=== PATIENT | female | born 2000 | race Hispanic/Latino ===

== ENCOUNTER 2024-05-26 10:27 | Emergency (ER) | payer OTHER ==
[~2024-05-26] VITALS: Ht 167.6 cm; Wt 129.3 kg
[2024-05-26] MEDS: hydrALAZine 20MG/ML VIAL IV ONE (11:02)
[2024-05-26] MEDS: 0.9%NACL 1000ML 1,000 ML IV ONE (11:02)
[2024-05-26 11:18] LABS: BASOPHILS # (AUTO) 0.05 K/uL (0.00-0.20); BASOPHILS % (AUTO) 0.6 % (0.0-5.0); EOSINOPHILS # (AUTO) 0.06 K/uL (0.00-0.70); EOSINOPHILS % (AUTO) 0.7 % (0.0-8.0); HEMATOCRIT 41.5 % (36-48); IMMATURE GRANULOCYTE ABSOLUTE 0.02 K/uL (0-1); LYMPHOCYTES # (AUTO) 1.4 K/uL (1.0-4.8); LYMPHOCYTES % (AUTO) 15.1 % (21.0-51.0); MEAN CORPUSCULAR HEMOGLOBIN 26.8 pg (27.0-33.0); MEAN CORPUSCULAR HGB CONC 32.5 g/dL (32.0-36.0); MEAN CORPUSCULAR VOLUME 82.3 fL (79-99); MONOCYTES # (AUTO) 0.4 K/uL (0.1-1.0); MONOCYTES % (AUTO) 3.9 % (3.0-13.0); NEUTROPHILS # (AUTO) 7.1 K/uL (1.8-7.7); NEUTROPHILS % (AUTO) 79.5 % (40.0-77.0); PLATELET COUNT (AUTO) 310 K/uL (130-400); RED BLOOD CELL COUNT(AUTO) 5.04 MIL/uL (4.00-5.50); RED CELL DISTRIBUTION WIDTH 14.2 % (11.0-15.5)
[2024-05-26 11:24] LABS: CREATININE 0.7 mg/dL (0.5-1.0); POTASSIUM 3.7 mmol/L (3.5-5.1)
[2024-05-26 11:38] LABS: HCG,QUALITATIVE URINE NEGATIVE (NEGATIVE)
[2024-05-26 11:45] LABS: APPEARANCE,URINE TURBID (CLEAR); BILIRUBIN,URINE NEGATIVE (NEGATIVE); COLOR,URINE RED (YELLOW); GLUCOSE, URINE (UA) >=1000 mg/dL (NEGATIVE); KETONES,URINE 15 mg/dL (NEGATIVE); LEUKOCYTE ESTERASE ,URINE NEGATIVE Leu/uL (NEGATIVE); NITRATE,URINE NEGATIVE (NEGATIVE); OCCULT BLOOD,URINE LARGE (NEGATIVE); PH,URINE 5.5 (5.0-8.0); PROTEIN,URINE 100 mg/dL (NEGATIVE); UROBILINOGEN,URINE 0.2 mg/dL (0.2-1.0)
[2024-05-26 11:52] LABS: ADD UA MICROSCOPIC YES
[2024-05-26 12:02] LABS: RBC,URINE TNTC /HPF (0-1)
[2024-05-26 12:03] LABS: BACTERIA,URINE Few /HPF (None Seen); SQUAMOUS EPITHELIAL CELL,UR Rare /HPF (0-2)
[2024-05-26] MEDS: metoPROLOL tartRATE 1 MG/ML 5ML VIAL IV ONE (12:09)
[2024-05-26 12:20] VITALS: BP 155/84; PULSE 91; RESP 18; TEMP 98.2; O2SAT 100
[2024-05-26] MEDS ORDERED: METO100T14 PO (12:24)
== END 2024-05-26 12:29 | disposition home or self-care (01) ==
LOC: EDH 10:27
DX: N93.8 Other specified abnormal uterine and vaginal bleeding (principal); E11.65 Type 2 diabetes mellitus with hyperglycemia; E66.9 Obesity, unspecified; I16.0 Hypertensive urgency; Z90.89 Acquired absence of other organs; Z88.8 Allergy status to other drugs, medicaments and biological substances; Z79.899 Other long term (current) drug therapy
CPT/HCPCS: 99284; 96374; 96375; 84484; 80048; 85025; 86850; 86900; 86901; 87086; 82948; 82010; 81001; 81025; 36415; 93005; J3490; J7030; J0360

== ENCOUNTER 2025-08-05 04:51 | Inpatient (IN) | payer OTHER ==
[~2025-08-05] VITALS: Ht 167.6 cm; Wt 116.1 kg
[2025-08-05] VITALS (8 sets, daily range): BP systolic 127–144; BP diastolic 62–89; PULSE 81–128; RESP 20–55; TEMP 98.4–98.7; O2SAT 97–100
[~2025-08-05 04:51] MED LIST: METO100T14 PO
[2025-08-05] MEDS: 0.9%NACL 1000ML 1,000 ML IV SCH ×2 (05:11→09:23)
[2025-08-05 05:17] LABS: IMMATURE GRANULOCYTE ABSOLUTE 0.05 K/uL (0-1); NUCLEATED RED BLOOD CELLS 0.0 % (0.0-0.19); PLATELET COUNT (AUTO) 216 K/uL (130-400); RED BLOOD CELL COUNT(AUTO) 5.31 MIL/uL (4.00-5.50); RED CELL DISTRIBUTION WIDTH 13.2 % (11.0-15.5); WHITE BLOOD COUNT (AUTO) 13.0 K/uL (4.8-10.8)
--- NOTE | 2025-08-05 05:18 | ERN ---
General Chief Complaint: Abdominal Pain Stated Complaint: C/O ABD PAIN WITH N X V X DIARRHEA Time Seen by MD: 04:59 History of Present Illness Initial Comments 25-year-old female history of hypertension here for evaluation of nausea vomiting and diarrhea. Patient states she woke up this morning and had four episodes of vomiting and two episodes of diarrhea. She was concerned and thus decided to come to the emergency room for evaluation. She also states that she has a history of anxiety and does not like coming to hospital. Allergies: Coded Allergies: cetirizine (Unverified Allergy, Unknown, 05/26/24) Home Meds Active Scripts Metoprolol Tartrate (Metoprolol Tartrate) 100 Mg Tablet, 100 MG PO BID, #60 TAB Prov:[employer]RATOR 05/26/24 Past Medical History Past Medical History: Anxiety, Diabetes-Type II, High Cholesterol, Hypertension Past Surgical History: Tonsillectomy Female( History) LMP: Aug 05, 2025 Gastrointestinal/Abdominal: (+) nausea, (+) vomiting, (+) diarrhea (Autism aefedgd7 membranes day the aefedgd7 cm,) Review of Systems: was completed, & the rest were negative. Physical Exam General Appearance: (+) no apparent distress Orientation: (+) alert, (+) oriented x 3 Head/Face Trauma: No Eye: bilateral eye normal inspection, bilateral eye PERRL, bilateral eye EOMI Ear, Nose, Throat: (+) hearing grossly normal, (+) moist mucous membraine, (+) normal pharynx Neck: (+) normal inspection, (+) supple, (+) full range of motion Respiratory: (+) chest non-tender, (+) well ventilated; (-) decreased breath sounds Heart: (+) tachycardia; (-) murmur Gastrointestinal: (+) soft Gastrointestinal Comment Mild Epigastric tenderness Results Laboratory and Microbiology Lab and Micro Result Laboratory Tests Test 08/05/25 05:11 08/05/25 06:50 08/05/25 07:47 08/05/25 08:02 White Blood Count 13.0 K/uL (4.8-10.8) H Red Blood Count 5.31 MIL/uL (4.00-5.50) Hemoglobin 15.1 g/dL (12.0-16.0) Hematocrit 45.4 % (36-48) Mean Corpuscular Volume 85.5 fL (79-99) Mean Corpuscular Hemoglobin 28.4 pg (27.0-33.0) Mean Corpuscular Hemoglobin Concent 33.3 g/dL (32.0-36.0) Red Cell Distribution Width 13.2 % (11.0-15.5) Platelet Count 216 K/uL (130-400) Mean Platelet Volume 11.6 fL (7.5-10.5) H Immature Granulocyte % (Auto) 0.4 % (0-1) Neutrophils (%) (Auto) 85.2 % (40.0-77.0) H Lymphocytes (%) (Auto) 8.9 % (21.0-51.0) L Monocytes (%) (Auto) 4.6 % (3.0-13.0) Eosinophils (%) (Auto) 0.5 % (0.0-8.0) Basophils (%) (Auto) 0.4 % (0.0-5.0) Neutrophils # (Auto) 11.1 K/uL (1.8-7.7) H Lymphocytes # (Auto) 1.2 K/uL (1.0-4.8) Monocytes # (Auto) 0.6 K/uL (0.1-1.0) Eosinophils # (Auto) 0.07 K/uL (0.00-0.70) Basophils # (Auto) 0.05 K/uL (0.00-0.20) Absolute Immature Granulocyte (auto 0.05 K/uL (0-1) Nucleated Red Blood Cells 0.0 % (0.0-0.19) White Cell Morphology Comment CONSISTENT W/DIFF Sodium Level 132 mmol/L (136-145) L Potassium Level 4.5 mmol/L (3.5-5.1) Chloride Level 96 mmol/L (101-111) L Carbon Dioxide Level 22 mmol/L (21-32) Blood Urea Nitrogen 13 mg/dL (7-18) Creatinine 0.6 mg/dL (0.5-1.0) Glomerular Filtration Rate Calc 127 mL/min (>90) Random Glucose 338 mg/dL (70-105) H Total Calcium 8.9 mg/dL (8.5-10.1) Total Bilirubin 0.5 mg/dL (0.2-1.0) Direct Bilirubin < 0.1 mg/dL (0.0-0.3) Aspartate Amino Transf (AST/SGOT) 54 U/L (10-37) H Alanine Aminotransferase (ALT/SGPT) 32 U/L (12-78) Alkaline Phosphatase 93 U/L (50-136) Total Protein 8.4 g/dL (6.0-8.3) H Albumin 3.7 g/dL (3.5-5.0) Lipase 38 U/L (16-77) Serum Test, Qualitative NEGATIVE (NEGATIVE) Urine Color COLORLESS (YELLOW) Urine Appearance CLEAR (CLEAR) Urine pH 5.5 (5.0-8.0) Urine Specific [place] 1.032 (1.001-1.031) Urine Protein NEGATIVE mg/dL (NEGATIVE) Urine Glucose (UA) >=1000 mg/dL (NEGATIVE) H Urine Ketones 20 mg/dL (NEGATIVE) H Urine Occult Blood +- (TRACE) (NEGATIVE) H Urine Nitrate NEGATIVE (NEGATIVE) Urine Bilirubin NEGATIVE mg/dL (NEGATIVE) Urine Urobilinogen 0.2 mg/dL (0.2-1.0) Urine Leukocyte Esterase NEGATIVE Mc/uL Urine RBC 2-5 /HPF (0-1) H Urine WBC 0-1 /HPF (0-1) Urine Squamous Epithelial Cells RARE /HPF (0-2) Urine Bacteria None /HPF (None Seen) Urine Opiates Screen NEGATIVE (NEGATIVE) Urine Barbiturates Screen NEGATIVE (NEGATIVE) Urine Phencyclidine Screen NEGATIVE (NEGATIVE) Urine Amphetamines Screen NEGATIVE (NEGATIVE) Urine Benzodiazepines Screen NEGATIVE (NEGATIVE) Urine Cocaine Screen NEGATIVE (NEGATIVE) Urine Marijuana (THC) Screen NEGATIVE (NEGATIVE) Whole Blood Ketones Quantitative 1.4 mmol/L (0.0-0.6) H Blood Gas Specimen Type Arterial Arterial Blood pH 7.493 (7.350-7.450) Arterial Blood Partial Pressure CO2 25 mmHg (32-45) L Arterial Blood Partial Pressure O2 94.4 mmHg (83.0-108.0) Arterial Blood HCO3 18.9 mmol/L (21.0-28.0) L Arterial Blood Oxygen Saturation 97.6 % (94.0-98.0) Arterial Blood Base Excess -2.5 mmol/L (-2.0-3.0) L Hemoglobin (Blood Gas) 15.1 g/dL (12.0-16.0) Sodium (Blood Gas) 137 MMOL/L (136-145) Bedside Potassium (Blood Gas) 4.0 MMOL/L (3.4-4.5) Bedside Chloride (Blood Gas) 102 MMOL/L (98-107) Bedside Glucose (Blood Gas) 331 MG/DL (65-95) H Bedside Ionized Calcium (Blood Gas) 1.10 MMOL/L (1.15-1.33) L Bedside Lactic Acid (Blood Gas) 2.12 MMOL/L (0.36-0.75) H Blood Gas Temperature 37.0 CELSIUS (35.5-37.0) Blood Gas Vent Mode RA (ROOM AIR) FiO2 21.0 % Blood Gas Specimen Comment LR, EKG/XRAY/US/CT/MRI EKG Comment EKG read by me with a rate of 125, NV 127, QRS 107, QT 331, sinus tachycardia with a left ventricular hypertrophy no STEMI MDM 25-year-old female history of hypertension likely gastroenteritis. We will get labs, give fluids, had reassess. Patient's blood pressure elevated here likely secondary to white coat hypertension. We will give dose of labetalol here as she is on metoprolol. She did not take her medications today MDM: DIFFERENTIAL DIAGNOSIS: Gastroenteritis, food poisoning, anxiety, dka RATIONALE: TESTS CONSIDERED AND ORDERED SECONDARY TO SHARED DECISION MAKING INCLUDE: PREVIOUS OUTSIDE RECORDS REVIEWED: OLD ER VISITS. RISK OF COMPLICATION AND/OR MORBIDITY OR MORTALITY OF PATIENT MANAGEMENT: NONE MEDICATIONS-PER MEDICATION RECONCILIATION NEED FOR HOSPITALIZATION: PATIENT DOES NOT MEET CRITERIA FOR HOSPITALIZATION. NEED FOR EMERGENCY MAJOR/MINOR SURGERY: NO THERE ARE NO SOCIAL CONCERNS WITH THIS PATIENT. PRESCRIPTION DRUG MANAGEMENT PRESCRIPTIONS WILL INCLUDE SYMPTOMATIC CARE PATIENT'S PRIOR EXTERNAL MEDICAL RECORDS FROM OTHER ER VISITS WERE REVIEWED BY ME INDICATED. PRIOR TESTING AND RESULTS FROM PREVIOUS VISITS WERE REVIEWED. PRIOR TESTS WERE TAKEN INTO ACCOUNT WITH MEDICAL DECISION MAKING AND RESOURCE UTILIZATION, INDEPENDENT HISTORIAN/HISTORIANS WERE USED TO OBTAIN COMPLETE MEDICAL HISTORY. I INDEPENDENTLY INTERPRETED THE TEST THAT WERE PERFORMED, RESULTS WERE REVIEWED BY ME AND CONSIDERED FINDINGS ON RADIOLOGY IF ORDERED. MEDICAL MANAGEMENT AND EXAMINATION INTERPRETATION DISCUSSIONS WERE HAD BY ME WITH OTHER QUALIFIED HEALTHCARE PROFESSIONALS INDICATED FOR THE PATIENT'S CARE. Patient transitioned to Dr. Mayo at the end of my shift. Pending urinalysis, patient is a 25-year-old female coming in complaining of abdominal discomfort nauseousness and vomiting. Laboratory workup did show an elevated anion gap of 16 with a an elevated blood glucose. Patient will be admitted under the care of hospitalist group for ongoing management of DKA. ED Course Orders Procedure Category Date Status Time 0.9%Nacl 1000ml (Ns PHA 08/05/25 In Process 1000ml) 05:00 Ondansetron 4mg Inj PHA 08/05/25 Complete (Zofran 4mg Inj) 05:00 Cbc With Differential LAB 08/05/25 Complete 04:59 Basic Metabolic Panel LAB 08/05/25 Complete 04:59 Hepatic Function Panel LAB 08/05/25 Complete 04:59 Urinalysis Profile LAB 08/05/25 Complete 04:59 Testing, LAB 08/05/25 Complete Serum Hcg 04:59 Lipase LAB 08/05/25 Complete 04:59 12 Lead Ekg Tracing- EKG 08/05/25 Logged Technical 05:15 Labetalol 20mg Syg PHA 08/05/25 Complete (Trandate 20mg Syg) 05:30 Labetalol 20mg Syg PHA 08/05/25 Complete (Trandate 20mg Syg) 05:24 Hydralazine 20mg Inj PHA 08/05/25 Complete (Apresoline 20mg In 06:30 Ondansetron 4mg Inj PHA 08/05/25 Complete (Zofran 4mg Inj) 07:00 Drug Screen Urine LAB 08/05/25 Complete 07:12 Arterial Blood Gas + RT 08/05/25 Transmitted 07:38 Ketone Blood LAB 08/05/25 Complete Quantitative 07:38 Arterial Blood Gas LAB 08/05/25 Complete Arterial + 08:02 Dka Protocol: Bmp Q4h CPOE 08/05/25 Transmitted Until 08:17 Dka Protocol: Bs CPOE 08/05/25 Transmitted Monitoring 08:17 Insulin Regular, PHA 08/05/25 In Process Human 3ml (Humulin R 08:30 Current Medications Medications (Trade) Dose Ordered Sig/[place]arrison Route PRN Reason Start Time Stop Time Status Last Admin Dose Admin Hydralazine HCl (APRESOLine 20MG INJ) 20 mg ONCE ONCE IV 08/05/25 06:30 08/05/25 06:31 DC 08/05/25 06:29 Insulin Human Regular 100 unit/ Sodium Chloride 100 ml @ 0 mls/hr PROTOCOL IV 08/05/25 08:30 09/04/25 08:29 Labetalol HCl (TRANdate 20MG SYG) 10 mg ONCE ONCE IV 08/05/25 05:30 08/05/25 05:31 DC 08/05/25 05:46 Labetalol HCl (TRANdate 20MG SYG) 20 mg STK-MED ONCE IV 08/05/25 05:24 08/05/25 05:24 DC Ondansetron HCl (zoFRAN 4MG INJ) 4 mg ONCE ONCE IVP 08/05/25 05:00 08/05/25 05:09 DC 08/05/25 05:11 Ondansetron HCl (zoFRAN 4MG INJ) 4 mg ONCE ONCE IVP 08/05/25 07:00 08/05/25 07:01 DC 08/05/25 06:36 Sodium Chloride 1,000 ml @ 0 mls/hr Q0M IV 08/05/25 05:00 09/04/25 04:59 08/05/25 05:11 Vital Signs Date Time Temp Pulse Resp B/P (MAP) Pulse Ox O2 Delivery O2 Flow Rate FiO2 08/05/25 07:37 98.8 127 18 147/90 100 Room Air* 0 08/05/25 06:30 98.8 125 18 157/107 100 Room Air* 0 08/05/25 05:48 98.8 101 18 166/116 100 Room Air* 0 08/05/25 05:06 98.8 131 18 190/119 99 Room Air* 0 08/05/25 04:52 97.3 136 24 191/130 100 Room Air DX & DISP Disposition: Inpatient Decision to Admit Time: 08:33 Departure Impression: Primary Impression: Diabetes mellitus with hyperglycemia Additional Impression: DKA (diabetic ketoacidosis) Condition: Stable Referrals: LULY OZUNA MD (PCP) SEJAL NICOLE MD Aug 05, 2025 05:18 YANELI MAYO MD Aug 05, 2025 08:33
[2025-08-05 05:37] LABS: ASPARTATE AMINOTRANSFERASE 54 U/L (10-37); CREATININE 0.6 mg/dL (0.5-1.0); GLOMERULAR FILTR. RATE CALC 127 mL/min (>90); GLUCOSE,RANDOM 338 mg/dL (70-105); TOTAL PROTEIN, SERUM 8.4 g/dL (6.0-8.3); UREA NITROGEN, BLOOD 13 mg/dL (7-18)
[2025-08-05 05:52] LABS: SODIUM SERUM 132 mmol/L (136-145)
[2025-08-05 05:55] LABS: WBC MORPHOLOGY CONSISTENT W/DIFF
[2025-08-05 07:13] LABS: APPEARANCE,URINE CLEAR (CLEAR); GLUCOSE, URINE (UA) >=1000 mg/dL (NEGATIVE); LEUKOCYTE ESTERASE ,URINE NEGATIVE Leu/uL (NEGATIVE); NITRATE,URINE NEGATIVE (NEGATIVE); OCCULT BLOOD,URINE +- (TRACE) (NEGATIVE)
[2025-08-05 07:20] LABS: ADD UA MICROSCOPIC YES
[2025-08-05 07:21] LABS: SQUAMOUS EPITHELIAL CELL,UR RARE /HPF (0-2)
[2025-08-05 07:47] LABS: AMPHET/METH SCREEN,URINE NEGATIVE (NEGATIVE); BARBITURATE SCREEN, URINE NEGATIVE (NEGATIVE); CANNABINOID SCREEN,URINE NEGATIVE (NEGATIVE); COCAINE SCREEN,URINE NEGATIVE (NEGATIVE)
[2025-08-05 08:05] LABS: ABG BASE EXCESS -2.5 mmol/L (-2.0-3.0); ABG HCO3 18.9 mmol/L (21.0-28.0); ABG OXYGEN SATURATION 97.6 % (94.0-98.0); ABG PCO2 25 mmHg (32-45); ABG PH 7.493 (7.350-7.450); CARBON MONOXIDE 0.8 % (0.5-1.5); PO2, ARTERIAL BG 94.4 mmHg (83.0-108.0); TEMPERATURE, CELSIUS BG 37.0 CELSIUS (35.5-37.0); VENT MODE, BG RA (ROOM AIR)
[2025-08-05] MEDS ORDERED: INSULIN REGULAR, HUMAN 3ML 100 UNIT in 0.9%NACL 100ML 99 ML IV SCH (08:30)
[2025-08-05] MEDS ORDERED: DEXTROSE 5 %-0.45 % NACL 1,000 ML IV SCH (09:00)
[2025-08-05 09:27] LABS: LACTATE DEHYDROGENASE 266.0 U/L (81-234)
--- NOTE | 2025-08-05 09:27 | HP ---
[facility] HISTORY AND PHYSICAL Date of Service: Aug 05, 2025 Time of Service: 09:19 HISTORY OF PRESENT ILLNESS: Date of service: 08/05/2025 patient was seen in ER room 12 This is a 25 year old female with underlying history of severe obesity, hypertension, type 2 diabetes mellitus, hyperlipidemia who presented to the ER for further evaluation of multiple episodes of nausea and vomiting patient states that she had some tacos last night and since then she has been having multiple nonbloody episode of diarrhea, multiple episodes of vomiting as well. Patient denies any fevers or chills. She has been having moderate intensity epigastric discomfort that is intermittent. Patient does report having history of hypertension that has been diagnosed for about one year, she also reports having issues with diabetes and she is currently maintained on metformin over the last one year. She reports having premature history of coronary artery disease in her father who had coronary artery bypass grafting in his 50s. Mother reports that patient also has symptoms of sleep apnea. Patient reports having lost some weight but unable to quantify. She denies any active smoking or alcohol consumption. Denies any illicit drug use. On presentation to the hospital, patient was noted to be afebrile with T-max of 97.3 F, heart rate of 136, blood pressure of 191/130. Labs [place] [address], hemoglobin of 15.1, platelet count of [id number]. BMP remarkable for sodium of 132, chloride of 96, creatinine of 0.6, blood glucose of 338, blood ketone of 1.4, AST of 54, ALT of 32, alkaline phosphatase 93, serum test was noted to be negative, lipase was normal at 38. Patient has been started on Insulin gtt already in the ER due to concerns for DKA. Patient will be admitted to ICU due to concerns for early DKA, patient will be started on IV hydration, IV antibiotic therapy, we will obtain a CT abdomen pelvis without contrast for further evaluation of diarrhea with concerns for infectious gastroenteritis. Request consultation with ICU service and endocrinology this admission. REVIEW OF SYSTEMS CONSTITUTIONAL: Denies fevers, chills, or night sweats. No unintentional weight loss reported. NEUROLOGICAL: Denies headache, amaurosis fugax, motor weakness, sensory deficit, vertigo/spinning sensation, gait abnormalities, or tremors. ENT: No hearing loss, otalgia, otorrhea, rhinitis, rhinorrhea, hoarseness, or sore throat. CARDIOVASCULAR: Denies any exertional angina, dyspnea on exertion, orthopnea, paroxysmal nocturnal dyspnea, palpitations, life-threatening arrhythmias, claudication. PULMONARY: Denies any shortness of breath, cough, phlegm/sputum, hemoptysis, pleuritic chest pain. SLEEP: Denies morning headaches, daytime somnolence or napping. Denies difficulty falling asleep, staying asleep, waking from sleep. Denies knowledge of snoring. GASTROINTESTINAL: Multiple episodes of nausea, vomiting and abdominal pain GENITOURINARY: Denies frequency, urgency, nocturia, hematuria or incontinence (Storage/Irritative symptoms.) Low urinary stream, straining to void, urinary intermittency or hesitancy, splitting of the voiding stream, terminal dribbling. ENDOCRINOLOGIC: Denies polyuria, polydipsia, polyphagia or heat/cold intolerances. HEMATOLOGIC: Denies thrombophilia/previous clots, or coagulopathy/bleeding disorders. ONCOLOGIC: Denies personal history of malignancy. DERMATOLOGIC: Denies rashes or pruritus. PSYCHIATRIC: Denies any suicidal or homicidal ideation. Denies hallucinations. PAST MEDICAL HISTORY: Hypertension for about a year, diagnosed with type 2 diabetes mellitus for about a year, morbid obesity, hyperlipidemia PAST SURGICAL HISTORY: Previous history of tonsillectomy PAST SOCIAL HISTORY: Resides with mother at home, denies active drug use denies any smoking or alcohol consumption FAMILY HISTORY: Family history of heart disease with father having coronary artery bypass grafting in his 50s Allergies: Cetirizine Medications: Losartan 25 mg daily, metoprolol tartrate 100 mg b.i.d., metformin 500 mg b.i.d., atorvastatin daily Coded Allergies: cetirizine (Unverified Allergy, Unknown, 05/26/24) PHYSICAL EXAM GENERAL APPEARANCE: The patient is awake, alert, patient is obese, resting in bed, appears anxious NEUROLOGICAL: Cranial nerves II-XII grossly intact. Motor is 5/5 in bilateral upper and lower extremities proximal to distal. No sensory deficits. HEENT: Face is symmetric. Pupils are equal and reactive. Extraocular movements are intact. NECK: Supple. No JVD. No thyromegaly. No submental, submandibular, pre- /postauricular, occipital or supraclavicular lymphadenopathy. CHEST: Normal chest expansion. No Telemetry. LUNGS: Absence of any rales, rhonchi or any wheezing. CARDIOVASCULAR: Regular. S1 and S2 normal. No appreciable rubs, murmurs or gallops. ABDOMEN: Soft, nontender, and nondistended. There is no rebound, voluntary guarding, or rigidity. : Deferred. No Donato. EXTREMITIES: Non-edematous and not cyanotic. No clubbing. Good capillary refill. SKIN: No skin breakdown. Vital Sign (Last 24 Hours) 08/05/25 07:37 Temp 98.8 Pulse 127 Resp 18 B/P (MAP) 147/90 Pulse Ox 100 O2 Delivery Room Air* O2 Flow Rate 0 FiO2 21 LABS: Laboratory: Test 08/05/25 08:02 08/05/25 07:47 08/05/25 07:17 08/05/25 06:50 Range/Units Blood Gas Specimen Type Arterial Arterial Blood pH 7.493 H 7.350-7.450 Arterial Blood Partial Pressure CO2 25 L 32-45 mmHg Arterial Blood Partial Pressure O2 94.4 83.0-108.0 mmHg Arterial Blood HCO3 18.9 L 21.0-28.0 mmol/L Arterial Blood Oxygen Saturation 97.6 94.0-98.0 % Arterial Blood Base Excess -2.5 L -2.0-3.0 mmol/L Hemoglobin (Blood Gas) 15.1 12.0-16.0 g/dL Sodium (Blood Gas) 137 136-145 MMOL/L Bedside Potassium (Blood Gas) 4.0 3.4-4.5 MMOL/L Bedside Chloride (Blood Gas) 102 98-107 MMOL/L Bedside Glucose (Blood Gas) 331 H 65-95 MG/DL Bedside Ionized Calcium (Blood Gas) 1.10 L 1.15-1.33 MMOL/L Bedside Lactic Acid (Blood Gas) 2.12 H 0.36-0.75 MMOL/L Blood Gas Temperature 37.0 35.5-37.0 CELSIUS Blood Gas Vent Mode RA ROOM AIR FiO2 21.0 % Blood Gas Specimen Comment DR.REYNA MARLON Whole Blood Ketones Quantitative 1.4 H 0.0-0.6 mmol/L Hemoglobin A1c 11.6 H 4.0-6.0 % Estimated Average Glucose (eAG) 286 H 70-126 mg/dL Urine Color COLORLESS YELLOW Urine Appearance CLEAR CLEAR Urine pH 5.5 5.0-8.0 Urine Specific [place] 1.032 H 1.001-1.031 Urine Protein NEGATIVE NEGATIVE mg/dL Urine Glucose (UA) >=1000 H NEGATIVE mg/dL Urine Ketones 20 H NEGATIVE mg/dL Urine Occult Blood +- (TRACE) H NEGATIVE Urine Nitrate NEGATIVE NEGATIVE Urine Bilirubin NEGATIVE NEGATIVE mg/dL Urine Urobilinogen 0.2 0.2-1.0 mg/dL Urine Leukocyte Esterase NEGATIVE NEGATIVE Mc/uL Urine RBC 2-5 H 0-1 /HPF Urine WBC 0-1 0-1 /HPF Urine Squamous Epithelial Cells RARE 0-2 /HPF Urine Bacteria None None Seen /HPF Urine Opiates Screen NEGATIVE NEGATIVE Urine Barbiturates Screen NEGATIVE NEGATIVE Urine Phencyclidine Screen NEGATIVE NEGATIVE Urine Amphetamines Screen NEGATIVE NEGATIVE Urine Benzodiazepines Screen NEGATIVE NEGATIVE Urine Cocaine Screen NEGATIVE NEGATIVE Urine Marijuana (THC) Screen NEGATIVE NEGATIVE Test 08/05/25 05:11 Range/Units White Blood Count 13.0 H 4.8-10.8 K/uL Red Blood Count 5.31 4.00-5.50 MIL/uL Hemoglobin 15.1 12.0-16.0 g/dL Hematocrit 45.4 36-48 % Mean Corpuscular Volume 85.5 79-99 fL Mean Corpuscular Hemoglobin 28.4 27.0-33.0 pg Mean Corpuscular Hemoglobin Concent 33.3 32.0-36.0 g/dL Red Cell Distribution Width 13.2 11.0-15.5 % Platelet Count 216 130-400 K/uL Mean Platelet Volume 11.6 H 7.5-10.5 fL Immature Granulocyte % (Auto) 0.4 0-1 % Neutrophils (%) (Auto) 85.2 H 40.0-77.0 % Lymphocytes (%) (Auto) 8.9 L 21.0-51.0 % Monocytes (%) (Auto) 4.6 3.0-13.0 % Eosinophils (%) (Auto) 0.5 0.0-8.0 % Basophils (%) (Auto) 0.4 0.0-5.0 % Neutrophils # (Auto) 11.1 H 1.8-7.7 K/uL Lymphocytes # (Auto) 1.2 1.0-4.8 K/uL Monocytes # (Auto) 0.6 0.1-1.0 K/uL Eosinophils # (Auto) 0.07 0.00-0.70 K/uL Basophils # (Auto) 0.05 0.00-0.20 K/uL Absolute Immature Granulocyte (auto 0.05 0-1 K/uL Nucleated Red Blood Cells 0.0 0.0-0.19 % White Cell Morphology Comment CONSISTENT W/DIFF Sodium Level 132 L 136-145 mmol/L Potassium Level 4.5 3.5-5.1 mmol/L Chloride Level 96 L 101-111 mmol/L Carbon Dioxide Level 22 21-32 mmol/L Blood Urea Nitrogen 13 7-18 mg/dL Creatinine 0.6 0.5-1.0 mg/dL Glomerular Filtration Rate Calc 127 >90 mL/min Random Glucose 338 H 70-105 mg/dL Total Calcium 8.9 8.5-10.1 mg/dL Total Bilirubin 0.5 0.2-1.0 mg/dL Direct Bilirubin < 0.1 0.0-0.3 mg/dL Aspartate Amino Transf (AST/SGOT) 54 H 10-37 U/L Alanine Aminotransferase (ALT/SGPT) 32 12-78 U/L Alkaline Phosphatase 93 50-136 U/L Total Protein 8.4 H 6.0-8.3 g/dL Albumin 3.7 3.5-5.0 g/dL Lipase 38 16-77 U/L Serum Test, Qualitative NEGATIVE NEGATIVE Current Medications Medications (Trade) Dose Ordered Sig/Garrison Route PRN Reason Start Time Stop Time Status Last Admin Dose Admin Acetaminophen (TYLenol 325MG TAB) 650 mg Q6H PRN PO MILD PAIN (1-3) 08/05/25 09:00 09/04/25 08:59 Ceftriaxone Sodium (ROCEphine 1G INJ) 1 gm Q24H IVPB 08/05/25 09:00 08/15/25 08:59 08/05/25 09:07 1 GM Dextrose/Sodium Chloride 1,000 ml @ 0 mls/hr AD IV 08/05/25 09:00 09/04/25 08:59 Enoxaparin Sodium (Lovenox) 40 mg DAILY SQ 08/06/25 09:00 09/05/25 08:59 Famotidine (Pepcid 20mg Vial) 20 mg BID IV 08/05/25 21:00 09/04/25 20:59 Hydralazine HCl (APRESOLine 20MG INJ) 10 mg Q6H PRN IV ADMINISTER FOR SBP > 170 08/05/25 09:30 09/04/25 09:29 UNV Insulin Human Regular 100 unit/ Sodium Chloride 100 ml @ 0 mls/hr PROTOCOL IV 08/05/25 08:30 08/05/25 09:02 DC Insulin Human Regular 100 unit/ Sodium Chloride 101 ml @ 0 mls/hr PROTOCOL IV 08/05/25 09:00 09/04/25 08:59 Ipratropium [place] (AtrovENT UD) 0.5 mg Q6H PRN IH SHORTNESS OF BREATH 08/05/25 09:00 09/04/25 08:59 Losartan Potassium (CozAAR 25MG TAB) 25 mg Q24H PO 08/05/25 09:00 09/04/25 08:59 Magnesium Sulfate 50 ml @ 0 mls/hr PROTOCOL IV 08/05/25 09:00 09/04/25 08:59 Metoprolol Tartrate (loprESSOR) 100 mg Q12H PO 08/05/25 09:00 09/04/25 08:59 Ondansetron HCl (zoFRAN 4MG INJ) 4 mg Q6H PRN IVP NAUSEA/VOMITING 08/05/25 09:00 09/04/25 08:59 Potassium Chloride 20 meq/ Sodium Chloride 1,010 ml @ 0 mls/hr PROTOCOL IV 08/05/25 09:00 09/04/25 08:59 Potassium Chloride/Dextrose/ Sod Cl 1,000 ml @ 0 mls/hr AD IV 08/05/25 09:00 09/04/25 08:59 Potassium Chloride 100 ml @ 0 mls/hr PROTOCOL PRN IV DKA POTASSIUM REPLACEMENT 08/05/25 09:00 09/04/25 08:59 Sodium Chloride 1,000 ml @ 0 mls/hr Q0M IV 08/05/25 05:00 08/05/25 08:59 DC 08/05/25 05:11 999 MLS/HR Sodium Chloride 1,000 ml @ 200 mls/hr PROTOCOL IV 08/05/25 09:00 09/04/25 08:59 DIAGNOSTICS / RADIOLOGY: Chest x-ray and CT abdomen pelvis without contrast is pending ASSESSMENT: Early diabetic ketoacidosis, POA Infectious gastroenteritis, POA Lactic acidosis, POA Dehydration, POA Hypertensive urgency, POA History of uncontrolled hypertension, POA History of poorly controlled type 2 diabetes mellitus, POA Severe Obesity, POA History of premature coronary artery disease, POA Metabolic syndrome, POA Leukocytosis, POA Rule out obstructive sleep apnea, POA PLAN: Patient will be admitted to ICU Patient is presenting with anion gap acidosis with a ketoacidosis in the setting of poorly controlled type 2 diabetes mellitus with A1c close to 11 and acute onset of nausea and vomiting with diarrhea concerning for infectious gastroenteritis We will check lactic acid, which will be trended closely Patient will be started on insulin drip per DKA protocol Patient will receive IV fluid hydration per DKA protocol, electrolytes will be aggressively repleted Patient has history of uncontrolled hypertension at a young age, we will continue with patient's home dose of metoprolol tartrate 100 mg b.i.d. and continue with Losartan 50 mg bid, patient has findings of sinus tachycardia and LVH in the EKG, we will also obtain further workup of hypertension including a renal ultrasound to rule out renal artery stenosis, we will check serum metaneph rines, we will obtain serum renin/aldosterone ratio We will obtain a 2D echocardiogram as well Consultation with endocrinology will be requested Consultation with ICU service will be requested Follow up results of chest x-ray and a CT abdomen pelvis without contrast We will keep patient on p.r.n. IV hydralazine 10 mg q.6 hours for SBP greater than 170 We will start patient on IV antibiotics with Rocephin/Flagyl, we will obtain GI PCR panel We will also obtain a thyroid panel with for any T3 and T4, we will check a lipid panel as well BMP will be serially monitored today, all labs will be repeated in the morning Anticipate hospitalization for at least 48-72 hours We will keep patient on GI prophylaxis with Pepcid and DVT prophylaxis with Lovenox 40 mg subcutaneous daily Patient will benefit from outpatient sleep study to rule out obstructive sleep apnea Wounds patient is doing better, patient was counseled to lose weight as outpatient, patient verbalized understanding Plan of care was discussed with patient and mother at bedside, Amadou Suarez MD Advanced Care Planning: Which of the following were discussed: Hospice care: Yes __ No _X_ Therapeutic options: Yes _X_ No __ Advance directives: Yes _X_ No __ Other discussions: Discussed with who?: Patient Voluntary nature of this service was explained to the patient? Yes _x_ No __ Amount of time spent: 20 minutes AMADOU SUAREZ MD Aug 05, 2025 09:27
[2025-08-05] MEDS: INSULIN REGULAR, HUMAN 3ML 100 UNIT in 0.9%NACL 100ML 100 ML IV SCH (09:44)
--- NOTE | 2025-08-05 09:45 | NUR ---
in radiology at this time
[2025-08-05 09:47] LABS: INR 1.03 (0.85-1.15)
[2025-08-05 09:54] LABS: CREATINE KINASE, TOTAL 50.0 U/L (21-232); CREATININE 0.7 mg/dL (0.5-1.0); GLOMERULAR FILTR. RATE CALC 122.0 mL/min (>90); GLUCOSE,RANDOM 309.0 mg/dL (70-105); LDL DIRECT 82.0 mg/dL (0-99); SODIUM SERUM 136.0 mmol/L (136-145); UREA NITROGEN, BLOOD 11.0 mg/dL (7-18)
--- NOTE | 2025-08-05 10:37 | HMCIMG ---
EXAM: CR Chest, 1 View. CLINICAL HISTORY: early DKA, r/o significant infiltrates COMPARISON: None provided. FINDINGS: LUNGS: The lungs show no infiltrate or other acute finding. PLEURAL SPACES: No pleural effusion or pneumothorax. MEDIASTINUM: The cardiomediastinal silhouette is within normal limits. BONES: No aggressive appearing osseous lesion seen. IMPRESSION: No acute cardiopulmonary pathology is evident. /[place]
--- NOTE | 2025-08-05 10:45 | NUR ---
in ct scan at this time
--- NOTE | 2025-08-05 12:23 | HMCIMG ---
EXAM: CT Abdomen and Pelvis Without IV contrast CLINICAL HISTORY: epigastric abdominal pain, n/v/, diarrhea, early DKA TECHNIQUE: Axial computed tomography images of the abdomen and pelvis without intravenous contrast. CONTRAST: No IV contrast. COMPARISON: None provided. FINDINGS: LUNG BASES: The lung bases appear clear. No pleural effusions are seen. LIVER: The liver is enlarged measuring 18.3 cm in length. There is overall decreased attenuation throughout the liver when compared with the spleen. No intrahepatic biliary ductal dilatation GALLBLADDER AND BILE DUCTS: The gallbladder appears within normal limits. No radioopaque gallstones are seen. No biliary ductal dilatation is evident. PANCREAS: Unremarkable. SPLEEN: Unremarkable. ADRENAL GLANDS: Unremarkable. KIDNEYS, URETERS, AND BLADDER: The kidneys appear within normal limits. There is no hydronephrosis or hydroureter. No urinary calculi are seen. STOMACH AND BOWEL: Unremarkable appearance of the stomach and bowel. No evidence of bowel obstruction. No evidence suggesting enteritis or colitis. APPENDIX: No evidence of acute appendicitis on CT examination. PERITONEUM: No free fluid. No free air. LYMPH NODES: No lymphadenopathy is evident. REPRODUCTIVE: Unremarkable as visualized. VASCULATURE: No evidence of abdominal aortic aneurysm. BONES: No aggressive appearing osseous lesion. No acute osseous pathology evident. Marked central canal narrowing at L4-L5 secondary to posterior osteo-disc complex IMPRESSION: 1. No acute intraabdominal or pelvic pathology. 2. Hepatomegaly with decreased attenuation, suggesting hepatic steatosis. 3. Marked central canal narrowing at L4-L5 secondary to posterior osteo-disc complex. /[place]
--- NOTE | 2025-08-05 12:32 | EKG ---
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
--- NOTE | 2025-08-05 12:56 | HMCIMG ---
STUDY: RENAL ARTERY DUPLEX ULTRASOUND HISTORY: Premature hypertension; assess for renal artery stenosis. TECHNIQUE: Transabdominal grayscale, color Doppler, and angle-corrected spectral Doppler evaluation of the abdominal aorta and renal arteries with measurements of renal size and bladder wall thickness. COMPARISON: None FINDINGS: Right kidney: 10.7 ??? 5.1 ??? 4.5 cm. Left kidney: 10.3 ??? 6.1 ??? 5.6 cm. Aorta: Peak systolic velocity measures 46 cm/s. Renal arteries: Bilateral renal arteries are not visualized due to overlying bowel gas. Bladder: Wall thickness measures 4 mm. IMPRESSION: * Nondiagnostic evaluation for renal artery stenosis as bilateral renal arteries were not visualized due to bowel gas. Recommend repeat duplex with bowel gas mitigation (fasting and graded compression) or alternative imaging with CTA or MRA if clinical suspicion remains high. * Kidneys are normal in size bilaterally based on provided measurements. * Abdominal aortic peak systolic velocity is 46 cm/s. * Bladder wall thickness measures 4 mm. /[place]
[2025-08-05 13:14] LABS: CREATININE 0.8 mg/dL (0.5-1.0); GLOMERULAR FILTR. RATE CALC 104.0 mL/min (>90); GLUCOSE,RANDOM 281.0 mg/dL (70-105); SODIUM SERUM 136.0 mmol/L (136-145); UREA NITROGEN, BLOOD 12.0 mg/dL (7-18)
--- NOTE | 2025-08-05 14:32 | NUR ---
DCP: HOME SW met with pt's brother Pranav Melo [phone] while pt in scan. 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 Uses no DME or provider or HH services. PCP is [facility] and uses [facility] for rx needs. Brother denies dc needs and will discharge home.
[2025-08-05 15:22] LABS: CREATININE 0.7 mg/dL (0.5-1.0); GLOMERULAR FILTR. RATE CALC 122.0 mL/min (>90); GLUCOSE,RANDOM 266.0 mg/dL (70-105); SODIUM SERUM 137.0 mmol/L (136-145); UREA NITROGEN, BLOOD 13.0 mg/dL (7-18)
[2025-08-05] MEDS: MAGNESIUM 2GM PREMIX 50ML 50 ML IV SCH (15:34)
[2025-08-05] MEDS: D5W-1/2 NS/20MEQ KCL 1,000 ML IV SCH (16:58)
[2025-08-05] MEDS ORDERED: LORA10TA7 PO (17:43)
[2025-08-05] MEDS ORDERED: METO100T14 PO (17:43)
[2025-08-05] MEDS ORDERED: ATOR20TA65 PO (17:43)
[2025-08-05] MEDS ORDERED: LOSA25TA41 PO (17:43)
[2025-08-05] MEDS ORDERED: METF-446 PO (17:43)
--- NOTE | 2025-08-05 18:17 | CONS ---
[facility] CONSULTATION NOTE Date Patient Seen: Aug 05, 2025 Time of Visit: 17:50 Supervising Physician: Tyler Tate MD Reason for Consultation: [facility] Primary Care Physician:Mei Khalil DO Outpatient Specialists: [ ] Inpatient Consults: Dr Patel , Dr Oropeza PROBLEM LIST: DKA, POA Infectious gastroenteritis, POA Lactic acidosis, POA Dehydration, POA Hypertensive urgency, POA History of uncontrolled hypertension, POA Poorly controlled type 2 diabetes mellitus, POA History of premature coronary artery disease, POA Metabolic syndrome, POA Leukocytosis, POA Morbid Obesity BMI 41.3 Suspected MAURO undiagnosed and untreated Suspected POS Menorrhagia HPI: This is a 25 yr old Morbidly Obese female with a past medical Hx of T2DM and essential HTN who presented to the ED for evaluation of Nausea and vomiting and diarrhea after eating tacos last night. Pt reports she is currently taking metformin at home for her T2DM. In the ED pt was found to be in DKA with elevated Agap of 16, ketones of 1.4 A1c of 11.6 and white count of 13K. ABG shows compensated metabolic acidosis. She was admitted to the ICU for Insulin gtt given her initial blood sugar of 338. We were consulted by primary team for CCM. On assessment pt was awake alert and oriented. Dry oral mucosa. Pt noted to have some Kussmaul respirations. She denies any abdominal pain or chest pain. CT abdomen and pelvis shows: 1. No acute intraabdominal or pelvic pathology. 2. Hepatomegaly with decreased attenuation, suggesting hepatic steatosis. 3. Marked central canal narrowing at L4-L5 secondary to posterior osteo-disc complex. Chest XR with no acute cardiopulmonary abnormalities. 2D echo was ordered by primary team. PAST MEDICAL HX: see above PAST SURGICAL HX: noncontributory SOCIAL HISTORY: No tobacco, ETOH, or illicit drug use Coded Allergies: cetirizine (Unverified Allergy, Unknown, 05/26/24) REVIEW OF SYSTEMS: Const: [no fever, fatigue, or weight changes] Eyes:[ no recent vision problems] ENT: [No congestion, ear pain, or sore throat] C/V: [no chest pain, palpitations or edema] Resp: [No cough, congestion, wheezing ,+ SOB GI: [No abdominal pain, +n/V and diarrhea : [No incontinence of or dysuria] + prolonged menstrual period day #10 today M/S: [No joint or pain swelling] Skin: [No rash] Neuro: [no headache, focal numbness, or weakness, dizziness or seizures] Psych: [no depression or anxiety] Heme: [no abnormal bruising or bleeding] Lymph: [no swollen glands] PHYSICAL EXAM: GENERAL: alert, weak, awake oriented x 3 HEENT: EOMI, Sclera non icteric, moist mucosa NECK: Supple, no JVD, trachea midline LUNGS: Clear breath sounds bilaterally. No wheezes HEART: Regular rate and rhythm. Normal S1 and S2, without murmurs ABD: morbidly obese Abdomen soft, nontender. Bowel sounds present EXT: No clubbing cyanosis or edema NEURO: Alert and oriented to person, follows commands Vital Signs (last 8hr) Date Time Temp Pulse Resp B/P (MAP) Pulse Ox O2 Delivery O2 Flow Rate FiO2 08/05/25 17:15 98.6 115 18 132/67 100 Room Air* 0 08/05/25 16:00 98.6 105 18 122/67 100 Room Air* 0 08/05/25 14:30 98.6 108 22 132/77 100 Room Air* 0 08/05/25 13:45 98.8 125 24 152/98 100 Room Air* 0 08/05/25 12:39 98.8 120 24 158/96 100 Room Air* 0 08/05/25 12:01 176/98 08/05/25 11:44 128 24 N/A Room Air 08/05/25 11:30 99.0 128 18 178/96 100 Room Air* 0 08/05/25 10:21 98.8 120 18 167/102 100 Room Air* 0 21 LABS: Hematology Labs: Test 08/05/25 07:17 08/05/25 05:11 Range/Units Erythrocyte Sedimentation Rate 34 H 0-20 MM/HR White Blood Count 13.0 H 4.8-10.8 K/uL Red Blood Count 5.31 4.00-5.50 MIL/uL Hemoglobin 15.1 12.0-16.0 g/dL Hematocrit 45.4 36-48 % Mean Corpuscular Volume 85.5 79-99 fL Mean Corpuscular Hemoglobin 28.4 27.0-33.0 pg Mean Corpuscular Hemoglobin Concent 33.3 32.0-36.0 g/dL Red Cell Distribution Width 13.2 11.0-15.5 % Platelet Count 216 130-400 K/uL Mean Platelet Volume 11.6 H 7.5-10.5 fL Immature Granulocyte % (Auto) 0.4 0-1 % Neutrophils (%) (Auto) 85.2 H 40.0-77.0 % Lymphocytes (%) (Auto) 8.9 L 21.0-51.0 % Monocytes (%) (Auto) 4.6 3.0-13.0 % Eosinophils (%) (Auto) 0.5 0.0-8.0 % Basophils (%) (Auto) 0.4 0.0-5.0 % Neutrophils # (Auto) 11.1 H 1.8-7.7 K/uL Lymphocytes # (Auto) 1.2 1.0-4.8 K/uL Monocytes # (Auto) 0.6 0.1-1.0 K/uL Eosinophils # (Auto) 0.07 0.00-0.70 K/uL Basophils # (Auto) 0.05 0.00-0.20 K/uL Absolute Immature Granulocyte (auto 0.05 0-1 K/uL Nucleated Red Blood Cells 0.0 0.0-0.19 % White Cell Morphology Comment CONSISTENT W/DIFF Chemistry Labs: Test 08/05/25 16:44 08/05/25 15:05 08/05/25 12:49 08/05/25 11:45 Range/Units Whole Blood Glucose 250 H 70-110 MG/DL Sodium Level 137 136-145 mmol/L Potassium Level 3.6 3.5-5.1 mmol/L Chloride Level 103 101-111 mmol/L Carbon Dioxide Level 21 21-32 mmol/L Blood Urea Nitrogen 13 7-18 mg/dL Creatinine 0.7 0.5-1.0 mg/dL Glomerular Filtration Rate Calc 122 >90 mL/min Random Glucose 266 H 70-105 mg/dL Total Calcium 8.1 L 8.5-10.1 mg/dL Magnesium Level 1.70 L 1.80-2.40 mg/dL Lactic Acid Level 2.7 H 0.8-2.5 mmol/L Bedside Glucose Comment Notified Nurse Test 08/05/25 09:00 08/05/25 07:47 08/05/25 07:17 08/05/25 05:11 Range/Units Total Creatine Kinase 50 21-232 U/L Troponin I High Sensitivity 6.6 4-50 ng/L B-Type Natriuretic Peptide 9 0-100 pg/mL Triglycerides Level 118 30-200 mg/dL Cholesterol Level 148 <200 mg/dL LDL Cholesterol 82 0-99 mg/dL HDL Cholesterol 46 35-85 mg/dL Whole Blood Ketones Quantitative 1.4 H 0.0-0.6 mmol/L Hemoglobin A1c 11.6 H 4.0-6.0 % Estimated Average Glucose (eAG) 286 H 70-126 mg/dL Lactate Dehydrogenase 266 H 81-234 U/L C-Reactive Protein, Quantitative 8.70 H 0.5-3.0 mg/L Procalcitonin 0.18 0.05-0.5 ng/mL Thyroid Stimulating Hormone (TSH) 0.83 0.36-3.74 uIU/mL Free Thyroxine (T4) Direct 1.33 0.76-1.46 ng/dL Free Triiodothyronine (T3) pg/mL 3.13 2.18-3.98 pg/mL Total Bilirubin 0.5 0.2-1.0 mg/dL Direct Bilirubin < 0.1 0.0-0.3 mg/dL Aspartate Amino Transf (AST/SGOT) 54 H 10-37 U/L Alanine Aminotransferase (ALT/SGPT) 32 12-78 U/L Alkaline Phosphatase 93 50-136 U/L Total Protein 8.4 H 6.0-8.3 g/dL Albumin 3.7 3.5-5.0 g/dL Lipase 38 16-77 U/L Serum Test, Qualitative NEGATIVE NEGATIVE Coagulation Labs: Test 08/05/25 09:00 Range/Units Prothrombin Time 10.9 9.6-11.6 SEC Prothromb Time International Ratio 1.03 0.85-1.15 Activated Partial Thromboplast Time 23.8 L 26.3-35.5 SEC DIAGNOSTICS / RADIOLOGY RESULTS: [ ] [place] [address] [address] IMAGING REPORT Signed PATIENT: JEFFREY BERUMEN MR#: [id number] : 2000 SEX: F AGE: 25 LOCATION: [facility]IP ORDER STATUS: ADM IN REPORT#: [id number] SERVICE [id number] REASON: epigastric abdominal pain, n/v/, diarrhea, early DKA ORDERING PHYSICIAN: JOSE JEAN MD PROCEDURE: ABD PEL WO - CT ABDOMEN/PELVIS W/O CONTRAST EXAM: CT Abdomen and Pelvis Without IV contrast CLINICAL HISTORY: epigastric abdominal pain, n/v/, diarrhea, early DKA TECHNIQUE: Axial computed tomography images of the abdomen and pelvis without intravenous contrast. CONTRAST: No IV contrast. COMPARISON: None provided. FINDINGS: LUNG BASES: The lung bases appear clear. No pleural effusions are seen. LIVER: The liver is enlarged measuring 18.3 cm in length. There is overall decreased attenuation throughout the liver when compared with the spleen. No intrahepatic biliary ductal dilatation GALLBLADDER AND BILE DUCTS: The gallbladder appears within normal limits. No radioopaque gallstones are seen. No biliary ductal dilatation is evident. PANCREAS: Unremarkable. SPLEEN: Unremarkable. ADRENAL GLANDS: Unremarkable. KIDNEYS, URETERS, AND BLADDER: The kidneys appear within normal limits. There is no hydronephrosis or hydroureter. No urinary calculi are seen. STOMACH AND BOWEL: Unremarkable appearance of the stomach and bowel. No evidence of bowel obstruction. No evidence suggesting enteritis or colitis. APPENDIX: No evidence of acute appendicitis on CT examination. PERITONEUM: No free fluid. No free air. LYMPH NODES: No lymphadenopathy is evident. REPRODUCTIVE: Unremarkable as visualized. VASCULATURE: No evidence of abdominal aortic aneurysm. BONES: No aggressive appearing osseous lesion. No acute osseous pathology evident. Marked central canal narrowing at L4-L5 secondary to posterior osteo-disc complex IMPRESSION: 1. No acute intraabdominal or pelvic pathology. 2. Hepatomegaly with decreased attenuation, suggesting hepatic steatosis. 3. Marked central canal narrowing at L4-L5 secondary to posterior osteo-disc complex. /[place] DICTATED BY: STEVENSON MUHAMMAD MD DATE: 08/05/251321 ELECTRONICALLY SIGNED BY: STEVENSON MUHAMMAD MD DATE: 08/05/251321 [place] [address] [id number] IMAGING REPORT Signed PATIENT: JEFFREY BERUMEN MR#: [id number] : 2000 SEX: F AGE: 25 LOCATION: [facility]IP ORDER 4 STATUS: ADM IN REPORT#: [id number] SERVICE 2 REASON: early DKA, r/o significant infiltrates ORDERING PHYSICIAN: JOSE JEAN MD PROCEDURE: CXR1VW - CHEST 1VW EXAM: CR Chest, 1 View. CLINICAL HISTORY: early DKA, r/o significant infiltrates COMPARISON: None provided. FINDINGS: LUNGS: The lungs show no infiltrate or other acute finding. PLEURAL SPACES: No pleural effusion or pneumothorax. MEDIASTINUM: The cardiomediastinal silhouette is within normal limits. BONES: No aggressive appearing osseous lesion seen. IMPRESSION: No acute cardiopulmonary pathology is evident. /[place] DICTATED BY: NANNETTE GARAY Jr., MD DATE: 08/05/251134 ELECTRONICALLY SIGNED BY: NANNETTE GARAY Jr., MD DATE: 08/05/251134 PLAN Admitted to ICU DKA protocol BMP q.4 hours per protocol Magnesium, potassium levels covered per protocol Q.1 hour or fingersticks Cardiac telemetry monitoring Venous blood gas in the morning Monitor serum sodium which tend to rise as hypoglycemia is corrected failure to observe may indicate the patient has been over-hydrated with free water Strict I&O Assess mental status Administered subcu basal insulin with lantus consider bicarb if patient's pH is less than 6.9 Empiric broad-spectrum antibiotic Monitor for rebound DKA NEURO: Minimize central acting medications as possible. Fall Precautions. Well lighted room through the day and minimize interruptions through the night to prevent acute delirium. PULMONARY: Supplemental 02 as needed Titrate Fio2 to keep Spo2 > or = 90% DuoNebs and CPT as needed IS hourly while awake for pulmonary hygiene Out of bed to chair as tolerated CARDIOVASCULAR: Follow hemodynamics. Titrate vasopressor to keep MAP >65 or systolic blood pressure >95mmHg DRIPS: insulin LINES: PIV GI & NUTRITION: Continue nutritional support Aspirations precautions Prokinetic agents and laxatives as needed KIDNEYS & ELECTROLYTES: Strict monitoring of intake and output Daily weights Avoid nephrotoxic agents Monitor electrolytes and replace as needed Goal urine output of 30mL/hr or 0.5mL/kg/hr Urine output: [ ] Fluid Balance: [ ] ENDOCRINE: Maintain blood glucose between 100-180 at all times. Insulin sliding scale for blood glucose management INFECTIOUS DISEASE: Trend temperature. Saleem-culture if febrile. Micro: [ ] stool culture blood culture Antibiotics: [ ] Rocephin 1 gram q 12 hrs HEMATOLOGY & COAGULATION: Monitor H&H. Keep Hgb > 7 Transfuse 1 unit of PRBC for Hgb < 7 Transfuse 1 pack of platelets of platelets < 20, 000 Watch for any signs and symptoms of bleeding SKIN: Pressure ulcer prevention per facility protocol Rehab: PT/OT Prophylaxis: GI:famotidine DVT: Lovenox Code Status: Full Resuscitation Disposition: ICU Other: Total patient care time exceeds 35 minutes excluding all procedures. Case was discussed and seen with my supervising physician. The above plan was formulated and agreed upon. ATTESTATION BY PHYSICIAN I reviewed the documentation, medical decision making, and treatment plan as noted by the mid-level provider above. I agree with the findings and plan of care. Tyler Tate MD, [facility] Aug 05, 2025 18:17
--- NOTE | 2025-08-05 20:16 | HMCSR ---
APPROVED REPORT EXAM: Two-dimensional and M-mode echocardiogram with Doppler and color Doppler. INDICATION ICD: Hypertension 2D Dimensions RVDd 2.8 cm LVEF(%) 30.5 (>50%) LVED Vol(simp.) 54.0 mL IVSd 1.4 (0.7-1.1cm) FS(%) 14 % LVES Vol(simp.) 16.0 mL LVDd 4.3 (3.8-5.6cm) LA (2D) 4.3 (1.6-4.0cm) LVEF(%, simp.) 69 % PWd 1.4 (0.7-1.1cm) Ao Root(2D) 3.0 (2.0-3.7cm) LA ESV INDEX (BP) 17.81 mL/m2 IVSs 1.5 cm LVOT diam 2.3 (1.8-2.4cm) LVDs 3.7 (2.5-4.0cm) PWs 1.6 cm Deformation Strain Apical 4 -14.5 % Apical 2 -13.6 % Apical 3 -15.1 % Global Strain -14.4 % M-Mode Dimensions EPSS 0.5 cm Aortic Valve AoV Vmax 2.6 m/s Ao Peak GR 27.7 mmHg LVOT Vmax 1.7 m/s AoV VTI 0.3 m Ao Mean GR 14.1 mmHg LVOT VTI 0.24 m NICO (VMAX) 2.58 cm2 NICO (VTI) 3.5 cm2 Mitral Valve MV E Vmax 102.6 cm/s DECEL Time 109 ms P 1/2 T 23 ms MVA (PHT) 9.7 cm2 TDI E/E' Medial 5.7 E/E' Lateral 4.7 Medial E' Peak V 17.89 cm/s Lateral E' Peak V 21.82 cm/s Pulmonary Valve PV Vmax 2.7 m/s PV Mean GR 19.5 mmHg PV Peak GR 30.1 mmHg Tricuspid Valve TR Vmax 1.5 m/s RAP (EST) 3 mmHg RVSP 12.7 mmHg TR Peak GR 9.7 mmHg Left Ventricle The left ventricle is normal size. GLS -14.0% Possible septal interventricular hypertrophy up to 1.3cm maximum thickness. The LVEF is > 65%. The left ventricular diastolic function is normal. Right Ventricle The right ventricle is normal size. The right ventricle is hyperdynamic. Atria The left atrium size is normal. The right atrium size is normal. Aortic Valve The aortic valve is normal in structure. No aortic regurgitation is present. There is no aortic valvular stenosis. Mitral Valve The mitral valve is normal in structure. There is no mitral valve regurgitation noted. There is no mitral valve stenosis. Tricuspid Valve The tricuspid valve is normal in structure. There is trace of tricuspid valve regurgitation noted. Pulmonic Valve The pulmonary valve is normal in structure. There is no pulmonic valvular regurgitation. Great Vessels The aortic root is normal in size. IVC is not well visualized. Pericardium There is no pericardial effusion. Other Information Quality : Technically difficult study due to body habitus Rhythm : Tachycardia Conclusion Underlying rhythm is sinus tachycardia with ventricular rate in the 130s. Suboptimal endocardial definition Left ventricular systolic function is hyperdynamic Possible septal interventricular hypertrophy up to 1.3cm maximum thickness. Recommend repeat limited echocardiogram with Definity contrast for improved endocardial definition once ventricular rate <100 bpm.
[2025-08-05] MEDS: FAMOTIDINE 20MG VIAL IV SCH (20:36)
[2025-08-05 23:08] LABS: CREATININE 0.8 mg/dL (0.5-1.0); GLOMERULAR FILTR. RATE CALC 104.0 mL/min (>90); GLUCOSE,RANDOM 219.0 mg/dL (70-105); SODIUM SERUM 137.0 mmol/L (136-145); UREA NITROGEN, BLOOD 13.0 mg/dL (7-18)
[2025-08-06] VITALS (15 sets, daily range): BP systolic 115–151; BP diastolic 62–94; PULSE 77–97; RESP 15–104; TEMP 97.5–98.8; O2SAT 96–99
[2025-08-06 02:28] LABS: IMMATURE GRANULOCYTE ABSOLUTE 0.02 K/uL (0-1); NUCLEATED RED BLOOD CELLS 0.0 % (0.0-0.19); PLATELET COUNT (AUTO) 179 K/uL (130-400); RED BLOOD CELL COUNT(AUTO) 4.45 MIL/uL (4.00-5.50); RED CELL DISTRIBUTION WIDTH 13.5 % (11.0-15.5); WHITE BLOOD COUNT (AUTO) 5.6 K/uL (4.8-10.8)
[2025-08-06 02:38] LABS: CREATININE 0.6 mg/dL (0.5-1.0); GLOMERULAR FILTR. RATE CALC 127.0 mL/min (>90); GLUCOSE,RANDOM 206.0 mg/dL (70-105); SODIUM SERUM 135.0 mmol/L (136-145); UREA NITROGEN, BLOOD 13.0 mg/dL (7-18)
[2025-08-06] MEDS ORDERED: CALCIUM GLUC 1GM/10ML VIAL IV ONE (03:30)
[2025-08-06] MEDS ORDERED: CALCIUM GLUC 1GM 2 GM in 0.9%NACL 100ML 100 ML IV SCH (03:30)
[2025-08-06] MEDS: LACTATED RINGERS 1000ML 1,000 ML IV SCH (05:57)
[2025-08-06] MEDS ORDERED: NON-FORMULARY MEDICATION 1 EACH (Metoprolol Tartrate 1 TAB) PO SCH (09:00)
[2025-08-06] MEDS: ENOXAPARIN SODIUM 40 MG/0.4 ML SYRINGE SQ SCH (09:42)
[2025-08-06] MEDS: LORATAdine 10 mg 10 MG TABLET PO SCH (09:42)
--- NOTE | 2025-08-06 11:59 | PN ---
[facility] PROGRESS NOTE Date of Service: Aug 06, 2025 Time of Service: 11:56 SUBJECTIVE: 08/06 power chart reviewed, vital signs, laboratory tests, imaging tests medications reviewed, patient awake, following commands, BP 141/72, afebrile, saturating normal on room air, CBC unremarkable, leukocytosis trended down, WBC today 5.6. Sodium 135, potassium 3.5, BUN of 13, creatinine 0.6. Urine drug screen negative. Results of blood cultures negative so far. CT abdomen and pelvis no acute intra-abdominal or pelvic pathology, hepatomegaly with decreased attenuation suggesting hepatic steatosis, marked central cannula narrowing L4-L5 secondary to posterior osteophyte disc complex. Chest x-ray no acute cardiopulmonary pathology. Echocardiogram underlying rhythm sinus tachycardia, suboptimal endocardial definition, left ventricle systolic function is hyperdynamic, possible septal intraventricular hypertrophy of to 1.3 cm maximum thickness. Patient off insulin drip, tolerating diet, no nausea, no vomiting, no abdominal discomfort. Patient to be downgraded from the ICU. Ultrasound renal artery Doppler: MPRESSION: * Nondiagnostic evaluation for renal artery stenosis as bilateral renal arteries were not visualized due to bowel gas. Recommend repeat duplex with bowel gas mitigation (fasting and graded compression) or alternative imaging with CTA or MRA if clinical suspicion remains high. * Kidneys are normal in size bilaterally based on provided measurements. * Abdominal aortic peak systolic velocity is 46 cm/s. * Bladder wall thickness measures 4 mm. REVIEW OF SYSTEMS CONSTITUTIONAL: Denies fevers, chills, or night sweats. No unintentional weight loss reported. NEUROLOGICAL: Denies headache, amaurosis fugax, motor weakness, sensory deficit, vertigo/spinning sensation, gait abnormalities, or tremors. ENT: No hearing loss, otalgia, otorrhea, rhinitis, rhinorrhea, hoarseness, or sore throat. CARDIOVASCULAR: Denies any exertional angina, dyspnea on exertion, orthopnea, paroxysmal nocturnal dyspnea, palpitations, life-threatening arrhythmias, claudication. PULMONARY: Denies any shortness of breath, cough, phlegm/sputum, hemoptysis, pleuritic chest pain. SLEEP: Denies morning headaches, daytime somnolence or napping. Denies difficulty falling asleep, staying asleep, waking from sleep. Denies knowledge of snoring. GASTROINTESTINAL: Multiple episodes of nausea, vomiting and abdominal pain GENITOURINARY: Denies frequency, urgency, nocturia, hematuria or incontinence (Storage/Irritative symptoms.) Low urinary stream, straining to void, urinary intermittency or hesitancy, splitting of the voiding stream, terminal dribbling. ENDOCRINOLOGIC: Denies polyuria, polydipsia, polyphagia or heat/cold intolerances. HEMATOLOGIC: Denies thrombophilia/previous clots, or coagulopathy/bleeding disorders. ONCOLOGIC: Denies personal history of malignancy. DERMATOLOGIC: Denies rashes or pruritus. PSYCHIATRIC: Denies any suicidal or homicidal ideation. Denies hallucinations. PHYSICAL EXAM GENERAL APPEARANCE: The patient is awake, alert, patient is obese, resting in bed, appears anxious NEUROLOGICAL: Cranial nerves II-XII grossly intact. Motor is 5/5 in bilateral upper and lower extremities proximal to distal. No sensory deficits. HEENT: Face is symmetric. Pupils are equal and reactive. Extraocular movements are intact. NECK: Supple. No JVD. No thyromegaly. No submental, submandibular, pre-/p ostauricular, occipital or supraclavicular lymphadenopathy. CHEST: Normal chest expansion. No Telemetry. LUNGS: Absence of any rales, rhonchi or any wheezing. CARDIOVASCULAR: Regular. S1 and S2 normal. No appreciable rubs, murmurs or gallops. ABDOMEN: Soft, nontender, and nondistended. There is no rebound, voluntary guarding, or rigidity. : Deferred. No Donato. EXTREMITIES: Non-edematous and not cyanotic. No clubbing. Good capillary refill. SKIN: No skin breakdown. Vital Signs (last 8hr) Date Time Temp Pulse Resp B/P (MAP) Pulse Ox O2 Delivery O2 Flow Rate FiO2 08/06/25 08:20 85 20 N/A Room Air 21 08/06/25 08:00 97 Room Air* 0 21 08/06/25 08:00 98.1 91 20 141/72 97 Room Air 08/06/25 07:00 96 20 141/77 97 Room Air 08/06/25 04:00 98.2 85 38 130/68 97 Room Air 08/06/25 04:00 97 Room Air* 0 21 LABS: Laboratory: Test 08/06/25 11:35 08/06/25 02:18 08/05/25 18:31 08/05/25 11:45 Range/Units Whole Blood Glucose 162 H 70-110 MG/DL White Blood Count 5.6 # 4.8-10.8 K/uL Red Blood Count 4.45 4.00-5.50 MIL/uL Hemoglobin 12.6 12.0-16.0 g/dL Hematocrit 37.6 36-48 % Mean Corpuscular Volume 84.5 79-99 fL Mean Corpuscular Hemoglobin 28.3 27.0-33.0 pg Mean Corpuscular Hemoglobin Concent 33.5 32.0-36.0 g/dL Red Cell Distribution Width 13.5 11.0-15.5 % Platelet Count 179 130-400 K/uL Mean Platelet Volume 11.3 H 7.5-10.5 fL Immature Granulocyte % (Auto) 0.4 0-1 % Neutrophils (%) (Auto) 77.6 H 40.0-77.0 % Lymphocytes (%) (Auto) 14.0 L 21.0-51.0 % Monocytes (%) (Auto) 7.4 3.0-13.0 % Eosinophils (%) (Auto) 0.2 0.0-8.0 % Basophils (%) (Auto) 0.4 0.0-5.0 % Neutrophils # (Auto) 4.4 1.8-7.7 K/uL Lymphocytes # (Auto) 0.8 L 1.0-4.8 K/uL Monocytes # (Auto) 0.4 0.1-1.0 K/uL Eosinophils # (Auto) 0.01 0.00-0.70 K/uL Basophils # (Auto) 0.02 0.00-0.20 K/uL Absolute Immature Granulocyte (auto 0.02 0-1 K/uL Nucleated Red Blood Cells 0.0 0.0-0.19 % Sodium Level 135 L 136-145 mmol/L Potassium Level 3.5 3.5-5.1 mmol/L Chloride Level 104 101-111 mmol/L Carbon Dioxide Level 23 21-32 mmol/L Blood Urea Nitrogen 13 7-18 mg/dL Creatinine 0.6 0.5-1.0 mg/dL Glomerular Filtration Rate Calc 127 >90 mL/min Random Glucose 206 H 70-105 mg/dL Total Calcium 7.4 L 8.5-10.1 mg/dL Magnesium Level 2.20 1.80-2.40 mg/dL Lactic Acid Level 2.0 0.8-2.5 mmol/L Bedside Glucose Comment Notified Nurse Test 08/05/25 09:00 08/05/25 08:02 08/05/25 07:47 08/05/25 07:17 Range/Units Prothrombin Time 10.9 9.6-11.6 SEC Prothromb Time International Ratio 1.03 0.85-1.15 Activated Partial Thromboplast Time 23.8 L 26.3-35.5 SEC Total Creatine Kinase 50 21-232 U/L Troponin I High Sensitivity 6.6 4-50 ng/L B-Type Natriuretic Peptide 9 0-100 pg/mL Triglycerides Level 118 30-200 mg/dL Cholesterol Level 148 <200 mg/dL LDL Cholesterol 82 0-99 mg/dL HDL Cholesterol 46 35-85 mg/dL Blood Gas Specimen Type Arterial Arterial Blood pH 7.493 H 7.350-7.450 Arterial Blood Partial Pressure CO2 25 L 32-45 mmHg Arterial Blood Partial Pressure O2 94.4 83.0-108.0 mmHg Arterial Blood HCO3 18.9 L 21.0-28.0 mmol/L Arterial Blood Oxygen Saturation 97.6 94.0-98.0 % Arterial Blood Base Excess -2.5 L -2.0-3.0 mmol/L Hemoglobin (Blood Gas) 15.1 12.0-16.0 g/dL Sodium (Blood Gas) 137 136-145 MMOL/L Bedside Potassium (Blood Gas) 4.0 3.4-4.5 MMOL/L Bedside Chloride (Blood Gas) 102 98-107 MMOL/L Bedside Glucose (Blood Gas) 331 H 65-95 MG/DL Bedside Ionized Calcium (Blood Gas) 1.10 L 1.15-1.33 MMOL/L Bedside Lactic Acid (Blood Gas) 2.12 H 0.36-0.75 MMOL/L Blood Gas Temperature 37.0 35.5-37.0 CELSIUS Blood Gas Vent Mode RA ROOM AIR FiO2 21.0 % Blood Gas Specimen Comment DR.REYNA MARLON Whole Blood Ketones Quantitative 1.4 H 0.0-0.6 mmol/L Erythrocyte Sedimentation Rate 34 H 0-20 MM/HR Hemoglobin A1c 11.6 H 4.0-6.0 % Estimated Average Glucose (eAG) 286 H 70-126 mg/dL Lactate Dehydrogenase 266 H 81-234 U/L C-Reactive Protein, Quantitative 8.70 H 0.5-3.0 mg/L Procalcitonin 0.18 0.05-0.5 ng/mL Thyroid Stimulating Hormone (TSH) 0.83 0.36-3.74 uIU/mL Free Thyroxine (T4) Direct 1.33 0.76-1.46 ng/dL Free Triiodothyronine (T3) pg/mL 3.13 2.18-3.98 pg/mL Test 08/05/25 06:50 08/05/25 05:11 Range/Units Urine Color COLORLESS YELLOW Urine Appearance CLEAR CLEAR Urine pH 5.5 5.0-8.0 Urine Specific [place] 1.032 H 1.001-1.031 Urine Protein NEGATIVE NEGATIVE mg/dL Urine Glucose (UA) >=1000 H NEGATIVE mg/dL Urine Ketones 20 H NEGATIVE mg/dL Urine Occult Blood +- (TRACE) H NEGATIVE Urine Nitrate NEGATIVE NEGATIVE Urine Bilirubin NEGATIVE NEGATIVE mg/dL Urine Urobilinogen 0.2 0.2-1.0 mg/dL Urine Leukocyte Esterase NEGATIVE NEGATIVE Mc/uL Urine RBC 2-5 H 0-1 /HPF Urine WBC 0-1 0-1 /HPF Urine Squamous Epithelial Cells RARE 0-2 /HPF Urine Bacteria None None Seen /HPF Urine Opiates Screen NEGATIVE NEGATIVE Urine Barbiturates Screen NEGATIVE NEGATIVE Urine Phencyclidine Screen NEGATIVE NEGATIVE Urine Amphetamines Screen NEGATIVE NEGATIVE Urine Benzodiazepines Screen NEGATIVE NEGATIVE Urine Cocaine Screen NEGATIVE NEGATIVE Urine Marijuana (THC) Screen NEGATIVE NEGATIVE White Cell Morphology Comment CONSISTENT W/DIFF Total Bilirubin 0.5 0.2-1.0 mg/dL Direct Bilirubin < 0.1 0.0-0.3 mg/dL Aspartate Amino Transf (AST/SGOT) 54 H 10-37 U/L Alanine Aminotransferase (ALT/SGPT) 32 12-78 U/L Alkaline Phosphatase 93 50-136 U/L Total Protein 8.4 H 6.0-8.3 g/dL Albumin 3.7 3.5-5.0 g/dL Lipase 38 16-77 U/L Serum Test, Qualitative NEGATIVE NEGATIVE Current Medications Medications (Trade) Dose Ordered Sig/[place] Route PRN Reason Start Time Stop Time Status Last Admin Dose Admin Acetaminophen (TYLenol 325MG TAB) 650 mg Q6H PRN PO MILD PAIN (1-3) 08/05/25 09:00 09/04/25 08:59 08/05/25 20:41 650 MG Atorvastatin Calcium (LIPItor 20MG) 20 mg DAILY PO 08/06/25 09:00 09/05/25 08:59 08/06/25 09:41 20 MG Calcium Gluconate 2 gm/Sodium Chloride 100 ml @ 0 mls/hr PROTOCOL IV 08/06/25 03:30 08/06/25 03:21 DC Ceftriaxone Sodium (ROCEphine 1G INJ) 1 gm BID IVPB 08/05/25 21:00 08/15/25 08:59 08/06/25 09:40 1 GM Ceftriaxone Sodium (ROCEphine 1G INJ) 1 gm Q24H IVPB 08/05/25 09:00 08/05/25 09:55 DC 08/05/25 09:07 1 GM Dextrose/Sodium Chloride 1,000 ml @ 0 mls/hr AD IV 08/05/25 09:00 08/06/25 03:14 DC Enoxaparin Sodium (Lovenox) 40 mg DAILY SQ 08/06/25 09:00 09/05/25 08:59 08/06/25 09:42 40 MG Famotidine (Pepcid 20mg Vial) 20 mg BID IV 08/05/25 21:00 09/04/25 20:59 08/06/25 09:40 20 MG Hydralazine HCl (APRESOLine 20MG INJ) 10 mg Q6H PRN IV ADMINISTER FOR SBP > 170 08/05/25 09:30 09/04/25 09:29 08/05/25 12:01 10 MG Insulin Glargine (LANtus 100 UNITS/ML 10 ML VIAL) 5 units BID@0730,2100 SQ 08/05/25 21:00 08/06/25 08:16 DC 08/05/25 20:37 5 UNITS Insulin Glargine (LANtus 100 UNITS/ML 10 ML VIAL) 10 units BID@0730,2100 SQ 08/06/25 21:00 09/05/25 20:59 Insulin Human Regular (humuLIN R 100 UNIT/ML 3ML) INSULIN SLIDING SCAL... ACHS SQ 08/06/25 07:30 09/05/25 07:29 08/06/25 08:19 6 UNIT Insulin Human Regular 100 unit/ Sodium Chloride 100 ml @ 0 mls/hr PROTOCOL IV 08/05/25 08:30 08/05/25 09:02 DC Insulin Human Regular 100 unit/ Sodium Chloride 101 ml @ 0 mls/hr PROTOCOL IV 08/05/25 09:00 08/06/25 03:14 DC 08/05/25 09:44 0 MLS/HR Ipratropium [place] (AtrovENT UD) 0.5 mg Q6H PRN IH SHORTNESS OF BREATH 08/05/25 09:00 09/04/25 08:59 Lactated Ringer's 1,000 ml @ 125 mls/hr Q8H IV 08/06/25 03:30 08/06/25 11:10 DC 08/06/25 05:57 125 MLS/HR Loratadine (LORATAdine 10 mg) 10 mg DAILY PO 08/06/25 09:00 09/05/25 08:59 08/06/25 09:42 10 MG Losartan Potassium (CozAAR 25MG TAB) 25 mg Q24H PO 08/05/25 09:00 08/05/25 12:57 DC 08/05/25 10:55 25 MG Losartan Potassium (CozAAR 50 mg TAB) 50 mg BID PO 08/05/25 21:00 09/04/25 20:59 08/06/25 09:41 50 MG Magnesium Sulfate 50 ml @ 0 mls/hr PROTOCOL IV 08/05/25 09:00 08/06/25 03:14 DC 08/05/25 15:34 25 MLS/HR Metoprolol Tartrate (loprESSOR) 100 mg Q12H PO 08/05/25 09:00 09/04/25 08:59 08/06/25 09:42 100 MG Metronidazole/ Sodium Chloride 100 ml @ 100 mls/hr Q8H IVPB 08/05/25 14:00 08/15/25 13:59 08/06/25 05:57 100 MLS/HR Miscellaneous Medication (Metoprolol Tartrate ) 1 tab BID PO 08/06/25 09:00 08/06/25 08:23 DC Ondansetron HCl (zoFRAN 4MG INJ) 4 mg Q6H PRN IVP NAUSEA/VOMITING 08/05/25 09:00 09/04/25 08:59 08/05/25 15:55 4 MG Potassium Chloride 20 meq/ Sodium Chloride 1,010 ml @ 0 mls/hr PROTOCOL IV 08/05/25 09:00 08/06/25 03:14 DC Potassium Chloride/Dextrose/ Sod Cl 1,000 ml @ 0 mls/hr AD IV 08/05/25 09:00 08/06/25 03:14 DC 08/06/25 00:26 150 MLS/HR Potassium Chloride 100 ml @ 0 mls/hr PROTOCOL PRN IV DKA POTASSIUM REPLACEMENT 08/05/25 09:00 08/06/25 03:14 DC 08/06/25 00:37 100 MLS/HR Sodium Chloride 1,000 ml @ 0 mls/hr Q0M IV 08/05/25 05:00 08/05/25 08:59 DC 08/05/25 05:11 999 MLS/HR Sodium Chloride 1,000 ml @ 200 mls/hr PROTOCOL IV 08/05/25 09:00 08/06/25 03:14 DC 08/05/25 09:23 200 MLS/HR Vasopressin 40 units/Sodium Chloride 40 ml @ 0 mls/hr AD PRN IV TITRATE 08/06/25 03:30 08/06/25 03:20 DC DIAGNOSTICS / RADIOLOGY: [ ] ASSESSMENT: Early diabetic ketoacidosis, POA Infectious gastroenteritis, POA Lactic acidosis, POA Dehydration, POA Hypertensive urgency, POA History of uncontrolled hypertension, POA History of poorly controlled type 2 diabetes mellitus, POA Severe Obesity, POA History of premature coronary artery disease, POA Metabolic syndrome, POA Leukocytosis, POA Rule out obstructive sleep apnea, POA PLAN: power chart reviewed, vital signs, laboratory tests, imaging tests medications reviewed, BP 141/72, afebrile, saturating normal on room air, CBC unremarkable, leukocytosis trended down, WBC today 5.6. Sodium 135, potassium 3.5, BUN of 13, creatinine 0.6. Urine drug screen negative. Results of blood cultures negative so far. CT abdomen and pelvis no acute intra-abdominal or pelvic pathology, hepatomegaly with decreased attenuation suggesting hepatic steatosis, marked central cannula narrowing L4-L5 secondary to posterior osteophyte disc complex. Chest x-ray no acute cardiopulmonary pathology. Echocardiogram underlying rhythm sinus tachycardia, suboptimal endocardial definition, left ventricle systolic function is hyperdynamic, possible septal intraventricular hypertrophy of to 1.3 cm maximum thickness. Ultrasound renal artery Doppler: MPRESSION: * Nondiagnostic evaluation for renal artery stenosis as bilateral renal arteries were not visualized due to bowel gas. Recommend repeat duplex with bowel gas mitigation (fasting and graded compression) or alternative imaging with CTA or MRA if clinical suspicion remains high. * Kidneys are normal in size bilaterally based on provided measurements. * Abdominal aortic peak systolic velocity is 46 cm/s. * Bladder wall thickness measures 4 mm. NEURO: Minimize central acting medications as possible. Fall Precautions. Well lighted room through the day and minimize interruptions through the night to prevent acute delirium. PULMONARY: Supplemental 02 as needed BiPAP as necessary, for respiratory distress Titrate Fio2 to keep Spo2 > or = 90% DuoNebs and CPT as needed IS hourly while awake for pulmonary hygiene prn Out of bed to chair as tolerated Maintain aspiration precautions at all times CARDIOVASCULAR: Follow hemodynamics. Vital signs per facility protocol GI & NUTRITION: Continue nutritional support Aspirations precautions Prokinetic agents and laxatives as needed KIDNEYS & ELECTROLYTES: Strict monitoring of intake and output Daily weights Avoid nephrotoxic agents Monitor electrolytes and replace as needed Goal urine output of 30mL/hr or 0.5mL/kg/hr Medications to be dosed according to renal function. Avoid contrast if possible ENDOCRINE: Maintain blood glucose between 100-180 at all times. Insulin sliding scale for blood glucose management Hypoglycemia and hyperglycemia protocol in place INFECTIOUS DISEASE: Trend temperature, WBC and procalcitonin level Follow cultures, deescalate antibiotics as soon as possible. Panculture if new onset fever HEMATOLOGY & COAGULATION: Monitor H&H. Keep Hgb > 7 Transfuse 1 unit of PRBC for Hgb < 7 Transfuse 1 pack of platelets of platelets < 20, 000 Watch for any signs and symptoms of bleeding SKIN: Pressure ulcer prevention per facility protocol Specialty mattress as needed ORTHO/REHAB Continue PT/OT PRN: MEDICATIONS Tylenol 650 mg po every 4 hrs for fever zofran 4 mg IV every 6 hrs for n/v Hydralazine 5 mg IV every 4 hrs systolic pressure > 160 bowel regiment: lactulose 20 gm PO BID PRN constipation Supportive measures: Continue GI and DVT prophylaxis Disposition: Pending improvement in clinical condition All questions answered time spent: > 35 min SATISH SADLER MD Aug 06, 2025 11:59
--- NOTE | 2025-08-06 15:10 | PN ---
[facility] PROGRESS NOTE Date Patient Seen: Aug 06, 2025 Time of Visit: 15:05 Supervising Physician: Sen Velasquez MD Primary Care Physician:Mei Khalil DO Outpatient Specialists: [ ] Inpatient Consults: Dr Patel , Dr Oropeza PROBLEM LIST: DKA, POA , resolved Infectious gastroenteritis, POA Lactic acidosis, POA , resolved Dehydration, POA, resolved Hypertensive urgency, POA , improved History of uncontrolled hypertension, POA Poorly controlled type 2 diabetes mellitus, POA History of premature coronary artery disease, POA Metabolic syndrome, POA Leukocytosis, POA Morbid Obesity BMI 41.3 Suspected MAURO undiagnosed and untreated Suspected POS Menorrhagia INTERVAL HISTORY: Pt awake alert and oriented x3 in NAD. A-Gap has closed. She is off insulin gtt. Blood sugars better controlled. she is tolerating clear liquids well. she can advance diet as tolerated. no further need to ICU care. she may downgrade to medical floor. From critical care standpoint we will sign off. Feel free to reach out if critical care required at any point. REVIEW OF SYSTEMS: Const: [no fever, fatigue, or weight changes] Eyes:[ no recent vision problems] ENT: [No congestion, ear pain, or sore throat] C/V: [no chest pain, palpitations or edema] Resp: [No cough, congestion, wheezing , GI: [No abdominal pain, no n/v : [No incontinence of or dysuria] + prolonged menstrual period day M/S: [No joint or pain swelling] Skin: [No rash] Neuro: [no headache, focal numbness, or weakness, dizziness or seizures] Psych: [no depression or anxiety] Heme: [no abnormal bruising or bleeding] Lymph: [no swollen glands] PHYSICAL EXAM: GENERAL: alert, weak, awake oriented x 3 HEENT: EOMI, Sclera non icteric, moist mucosa NECK: Supple, no JVD, trachea midline LUNGS: Clear breath sounds bilaterally. No wheezes HEART: Regular rate and rhythm. Normal S1 and S2, without murmurs ABD: morbidly obese Abdomen soft, nontender. Bowel sounds present EXT: No clubbing cyanosis or edema NEURO: Alert and oriented to person, follows commands Vital Signs (last 8hr) Date Time Temp Pulse Resp B/P (MAP) Pulse Ox O2 Delivery O2 Flow Rate FiO2 08/06/25 08:20 85 20 N/A Room Air 21 08/06/25 08:00 97 Room Air* 0 21 08/06/25 08:00 98.1 91 20 141/72 97 Room Air LABS: Hematology Labs: Test 08/06/25 02:18 08/05/25 07:17 08/05/25 05:11 Range/Units White Blood Count 5.6 # 4.8-10.8 K/uL Red Blood Count 4.45 4.00-5.50 MIL/uL Hemoglobin 12.6 12.0-16.0 g/dL Hematocrit 37.6 36-48 % Mean Corpuscular Volume 84.5 79-99 fL Mean Corpuscular Hemoglobin 28.3 27.0-33.0 pg Mean Corpuscular Hemoglobin Concent 33.5 32.0-36.0 g/dL Red Cell Distribution Width 13.5 11.0-15.5 % Platelet Count 179 130-400 K/uL Mean Platelet Volume 11.3 H 7.5-10.5 fL Immature Granulocyte % (Auto) 0.4 0-1 % Neutrophils (%) (Auto) 77.6 H 40.0-77.0 % Lymphocytes (%) (Auto) 14.0 L 21.0-51.0 % Monocytes (%) (Auto) 7.4 3.0-13.0 % Eosinophils (%) (Auto) 0.2 0.0-8.0 % Basophils (%) (Auto) 0.4 0.0-5.0 % Neutrophils # (Auto) 4.4 1.8-7.7 K/uL Lymphocytes # (Auto) 0.8 L 1.0-4.8 K/uL Monocytes # (Auto) 0.4 0.1-1.0 K/uL Eosinophils # (Auto) 0.01 0.00-0.70 K/uL Basophils # (Auto) 0.02 0.00-0.20 K/uL Absolute Immature Granulocyte (auto 0.02 0-1 K/uL Nucleated Red Blood Cells 0.0 0.0-0.19 % Erythrocyte Sedimentation Rate 34 H 0-20 MM/HR White Cell Morphology Comment CONSISTENT W/DIFF Chemistry Labs: Test 08/06/25 11:35 08/06/25 02:18 08/05/25 18:31 08/05/25 11:45 Range/Units Whole Blood Glucose 162 H 70-110 MG/DL Sodium Level 135 L 136-145 mmol/L Potassium Level 3.5 3.5-5.1 mmol/L Chloride Level 104 101-111 mmol/L Carbon Dioxide Level 23 21-32 mmol/L Blood Urea Nitrogen 13 7-18 mg/dL Creatinine 0.6 0.5-1.0 mg/dL Glomerular Filtration Rate Calc 127 >90 mL/min Random Glucose 206 H 70-105 mg/dL Total Calcium 7.4 L 8.5-10.1 mg/dL Magnesium Level 2.20 1.80-2.40 mg/dL Lactic Acid Level 2.0 0.8-2.5 mmol/L Bedside Glucose Comment Notified Nurse Test 08/05/25 09:00 08/05/25 07:47 08/05/25 07:17 08/05/25 05:11 Range/Units Total Creatine Kinase 50 21-232 U/L Troponin I High Sensitivity 6.6 4-50 ng/L B-Type Natriuretic Peptide 9 0-100 pg/mL Triglycerides Level 118 30-200 mg/dL Cholesterol Level 148 <200 mg/dL LDL Cholesterol 82 0-99 mg/dL HDL Cholesterol 46 35-85 mg/dL Whole Blood Ketones Quantitative 1.4 H 0.0-0.6 mmol/L Hemoglobin A1c 11.6 H 4.0-6.0 % Estimated Average Glucose (eAG) 286 H 70-126 mg/dL Lactate Dehydrogenase 266 H 81-234 U/L C-Reactive Protein, Quantitative 8.70 H 0.5-3.0 mg/L Procalcitonin 0.18 0.05-0.5 ng/mL Thyroid Stimulating Hormone (TSH) 0.83 0.36-3.74 uIU/mL Free Thyroxine (T4) Direct 1.33 0.76-1.46 ng/dL Free Triiodothyronine (T3) pg/mL 3.13 2.18-3.98 pg/mL Total Bilirubin 0.5 0.2-1.0 mg/dL Direct Bilirubin < 0.1 0.0-0.3 mg/dL Aspartate Amino Transf (AST/SGOT) 54 H 10-37 U/L Alanine Aminotransferase (ALT/SGPT) 32 12-78 U/L Alkaline Phosphatase 93 50-136 U/L Total Protein 8.4 H 6.0-8.3 g/dL Albumin 3.7 3.5-5.0 g/dL Lipase 38 16-77 U/L Serum Test, Qualitative NEGATIVE NEGATIVE Coagulation Labs: Test 08/05/25 09:00 Range/Units Prothrombin Time 10.9 9.6-11.6 SEC Prothromb Time International Ratio 1.03 0.85-1.15 Activated Partial Thromboplast Time 23.8 L 26.3-35.5 SEC DIAGNOSTICS / RADIOLOGY RESULTS: [facility] [address] [place] [address] IMAGING REPORT Signed PATIENT: JEFFREY BERUMEN MR#: [id number] : 2000 SEX: F AGE: 25 LOCATION: [facility] ORDER 0 STATUS: ADM IN REPORT#: [id number] SERVICE 9 REASON: premature HTN, assess for ALEE ORDERING PHYSICIAN: JOSE JEAN MD PROCEDURE: KEY ART DO - US RENAL ARTERY DOPPLER STUDY: RENAL ARTERY DUPLEX ULTRASOUND HISTORY: Premature hypertension; assess for renal artery stenosis. TECHNIQUE: Transabdominal grayscale, color Doppler, and angle-corrected spectral Doppler evaluation of the abdominal aorta and renal arteries with measurements of renal size and bladder wall thickness. COMPARISON: None FINDINGS: Right kidney: 10.7 ??? 5.1 ??? 4.5 cm. Left kidney: 10.3 ??? 6.1 ??? 5.6 cm. Aorta: Peak systolic velocity measures 46 cm/s. Renal arteries: Bilateral renal arteries are not visualized due to overlying bowel gas. Bladder: Wall thickness measures 4 mm. IMPRESSION: * Nondiagnostic evaluation for renal artery stenosis as bilateral renal arteries were not visualized due to bowel gas. Recommend repeat duplex with bowel gas mitigation (fasting and graded compression) or alternative imaging with CTA or MRA if clinical suspicion remains high. * Kidneys are normal in size bilaterally based on provided measurements. * Abdominal aortic peak systolic velocity is 46 cm/s. * Bladder wall thickness measures 4 mm. /[place] DICTATED BY: SHWETA FISHER MD DATE: 08/05/25 9064 ELECTRONICALLY SIGNED BY: SHWETA FISHER MD DATE: 08/05/25 [id number] PLAN NEURO: Minimize central acting medications as possible. Maintain fall precautions, adequate lighting during the day PULMONARY: Supplemental 02 as needed. Maintain aspiration precautions at all times CARDIOVASCULAR: Follow hemodynamics. Vital signs per facility protocol GI & NUTRITION: Continue with nutritional support. Continue stool softeners and laxatives as needed. KIDNEYS & ELECTROLYTES: Strict monitoring of intake, output and overall fluid balance. Avoid nephrotoxic medications to the extent possible. Medications to be dosed according to renal function. Monitor electrolytes and replace as needed ENDOCRINE: Maintain blood glucose between 100-180 at all times. Hypoglycemia protocol in place INFECTIOUS DISEASE: Trend temperature, WBC and procalcitonin level Follow cultures, deescalate antibiotics as soon as possible. Panculture if new onset fever ONCOLOGY/HEMATOLOGY/COAGULATION: Monitor for s/s of bleeding Monitor hemoglobin, coagulation studies as needed SKIN: Pressure ulcer prevention per facility protocol Specialty mattress ORTHO/REHAB: Continue PT/OT Prophylaxis: Continue GI and DVT prophylaxis Code Status: Full Resuscitation Disposition: TBD Other: ATTESTATION BY PHYSICIAN I reviewed the documentation, medical decision making, and treatment plan as noted by the mid-level provider above. I agree with the findings and plan of care. Sen Velasquez MD, [facility] Aug 06, 2025 15:10
--- NOTE | 2025-08-06 20:17 | CONS ---
CONSULT NOTE: Endocrinology Consult Chief complaint: nausea and vomiting Reason for consult: uncontrolled dm-2 DOS:08/06/25 HISTORY OF PRESENT ILLNESS: This is a 25 year old female with underlying history of severe obesity, hypertension, type 2 diabetes mellitus, hyperlipidemia who presented to the ER for further evaluation of multiple episodes of nausea and vomiting patient states that she had some tacos last night and since then she has been having multiple nonbloody episode of diarrhea, multiple episodes of vomiting as well. Patient denies any fevers or chills. Patient does report having history of hypertension that has been diagnosed for about one year, she also reports having issues with diabetes and she is currently maintained on metformin over the last one year. She reports having premature history of coronary artery disease in her father who had coronary artery bypass grafting in his 50s. On presentation to the hospital, patient was noted to be afebrile with T-max of 97.3 F, heart rate of 136, blood pressure of 191/130. [place] [address], hemoglobin of 15.1, platelet count of 460388. BMP remarkable for sodium of 132, chloride of 96, creatinine of 0.6, blood glucose of 338, blood ketone of 1.4, AST of 54, ALT of 32, alkaline phosphatase 93, serum test was noted to be negative, lipase was normal at 38. Patient has been started on Insulin gtt already in the ER due to concerns for DKA. Patient will be admitted to ICU due to concerns for early DKA, patient will be started on IV hydration, IV antibiotic therapy, we will obtain a CT abdomen pelvis without contrast for further evaluation of diarrhea with concerns for infectious gastroenteritis. Request consultation with ICU service and endocrinology this admission. Home diabetic regimen: metformin 500 mg bid Hba1c 11.6% REVIEW OF SYSTEMS CONSTITUTIONAL: Denies fevers, chills, or night sweats. No unintentional weight loss reported. NEUROLOGICAL: Denies headache, amaurosis fugax, motor weakness, sensory deficit, vertigo/spinning sensation, gait abnormalities, or tremors. ENT: No hearing loss, otalgia, otorrhea, rhinitis, rhinorrhea, hoarseness, or sore throat. CARDIOVASCULAR: Denies any exertional angina, dyspnea on exertion, orthopnea, paroxysmal nocturnal dyspnea, palpitations, life-threatening arrhythmias, cl audication. PULMONARY: Denies any shortness of breath, cough, phlegm/sputum, hemoptysis, pleuritic chest pain. SLEEP: Denies morning headaches, daytime somnolence or napping. Denies difficulty falling asleep, staying asleep, waking from sleep. Denies knowledge of snoring. GENITOURINARY: Denies frequency, urgency, nocturia, hematuria or incontinence (Storage/Irritative symptoms.) Low urinary stream, straining to void, urinary intermittency or hesitancy, splitting of the voiding stream, terminal dribbling. ENDOCRINOLOGIC: Denies polyuria, polydipsia, polyphagia or heat/cold intolerances. HEMATOLOGIC: Denies thrombophilia/previous clots, or coagulopathy/bleeding disorders. ONCOLOGIC: Denies personal history of malignancy. DERMATOLOGIC: Denies rashes or pruritus. PSYCHIATRIC: Denies any suicidal or homicidal ideation. Denies hallucinations. PAST MEDICAL HISTORY: Hypertension for about a year, diagnosed with type 2 diabetes mellitus for about a year, morbid obesity, hyperlipidemia PAST SURGICAL HISTORY: Previous history of tonsillectomy PAST SOCIAL HISTORY: Resides with mother at home, denies active drug use denies any smoking or alcohol consumption FAMILY HISTORY: Family history of heart disease with father having coronary artery bypass grafting in his 50s Allergies: Cetirizine Medications: Losartan 25 mg daily, metoprolol tartrate 100 mg b.i.d., metformin 500 mg b.i.d., atorvastatin daily Coded Allergies: cetirizine (Unverified Allergy, Unknown, 05/26/24) PHYSICAL EXAM GENERAL APPEARANCE: The patient is awake, alert, patient is obese, resting in bed, appears anxious NEUROLOGICAL: Cranial nerves II-XII grossly intact. Motor is 5/5 in bilateral upper and lower extremities proximal to distal. No sensory deficits. HEENT: Face is symmetric. Pupils are equal and reactive. Extraocular movements are intact. NECK: Supple. No JVD. No thyromegaly. No submental, submandibular, pre- /postauricular, occipital or supraclavicular lymphadenopathy. CHEST: Normal chest expansion. No Telemetry. LUNGS: Absence of any rales, rhonchi or any wheezing. CARDIOVASCULAR: Regular. S1 and S2 normal. No appreciable rubs, murmurs or gallops. ABDOMEN: Soft, nontender, and nondistended. There is no rebound, voluntary guarding, or rigidity. : Deferred. No Donato. EXTREMITIES: Non-edematous and not cyanotic. No clubbing. Good capillary refill. SKIN: No skin breakdown. DIAGNOSTICS / RADIOLOGY: Chest x-ray and CT abdomen pelvis without contrast is pending ASSESSMENT: History of uncontrolled DM-2, POA Home diabetic regimen: metformin 500 mg bid Hba1c 11.6% my suspicion is low for dka. Infectious gastroenteritis, POA Lactic acidosis, POA Dehydration, POA improved Hypertensive urgency, POA HTN, POA Severe Obesity, POA History of premature coronary artery disease, POA Metabolic syndrome, POA Leukocytosis, POA Rule out obstructive sleep apnea, POA PLAN: continue Lantus 10 units daily and adjust for fasting glucose. start Regular insulin 3 units three times before meals and adjust for post- prandial glucose. Continue medium dose sliding scale insulin. Monitor glucose q x 6 hourly. Continue carb consistent diet. Keep glucose less than 180 mg/dl. Patient will need lantus 20 units daily in addition to metformin at discharge. lantus rx placed in chart. Thanks for allowing me to participate in patient care and will continue to follow up. Vital Signs 08/06/25 08/06/25 08/06/25 15:00 16:00 19:44 Temp 97.5 Pulse 97 Resp 20 B/P (MAP) 132/77 Pulse Ox 98 O2 Delivery N/A Room Air O2 Flow Rate 0 FiO2 21 Hematology Labs: Test 08/06/25 02:18 08/05/25 07:17 08/05/25 05:11 Range/Units White Blood Count 5.6 # 4.8-10.8 K/uL Red Blood Count 4.45 4.00-5.50 MIL/uL Hemoglobin 12.6 12.0-16.0 g/dL Hematocrit 37.6 36-48 % Mean Corpuscular Volume 84.5 79-99 fL Mean Corpuscular Hemoglobin 28.3 27.0-33.0 pg Mean Corpuscular Hemoglobin Concent 33.5 32.0-36.0 g/dL Red Cell Distribution Width 13.5 11.0-15.5 % Platelet Count 179 130-400 K/uL Mean Platelet Volume 11.3 H 7.5-10.5 fL Immature Granulocyte % (Auto) 0.4 0-1 % Neutrophils (%) (Auto) 77.6 H 40.0-77.0 % Lymphocytes (%) (Auto) 14.0 L 21.0-51.0 % Monocytes (%) (Auto) 7.4 3.0-13.0 % Eosinophils (%) (Auto) 0.2 0.0-8.0 % Basophils (%) (Auto) 0.4 0.0-5.0 % Neutrophils # (Auto) 4.4 1.8-7.7 K/uL Lymphocytes # (Auto) 0.8 L 1.0-4.8 K/uL Monocytes # (Auto) 0.4 0.1-1.0 K/uL Eosinophils # (Auto) 0.01 0.00-0.70 K/uL Basophils # (Auto) 0.02 0.00-0.20 K/uL Absolute Immature Granulocyte (auto 0.02 0-1 K/uL Nucleated Red Blood Cells 0.0 0.0-0.19 % Erythrocyte Sedimentation Rate 34 H 0-20 MM/HR White Cell Morphology Comment CONSISTENT W/DIFF Chemistry Labs: Test 08/06/25 19:19 08/06/25 02:18 08/05/25 18:31 08/05/25 11:45 Range/Units Whole Blood Glucose 194 H 70-110 MG/DL Sodium Level 135 L 136-145 mmol/L Potassium Level 3.5 3.5-5.1 mmol/L Chloride Level 104 101-111 mmol/L Carbon Dioxide Level 23 21-32 mmol/L Blood Urea Nitrogen 13 7-18 mg/dL Creatinine 0.6 0.5-1.0 mg/dL Glomerular Filtration Rate Calc 127 >90 mL/min Random Glucose 206 H 70-105 mg/dL Total Calcium 7.4 L 8.5-10.1 mg/dL Magnesium Level 2.20 1.80-2.40 mg/dL Lactic Acid Level 2.0 0.8-2.5 mmol/L Bedside Glucose Comment Notified Nurse Test 08/05/25 09:00 08/05/25 07:47 08/05/25 07:17 08/05/25 05:11 Range/Units Total Creatine Kinase 50 21-232 U/L Troponin I High Sensitivity 6.6 4-50 ng/L B-Type Natriuretic Peptide 9 0-100 pg/mL Triglycerides Level 118 30-200 mg/dL Cholesterol Level 148 <200 mg/dL LDL Cholesterol 82 0-99 mg/dL HDL Cholesterol 46 35-85 mg/dL Whole Blood Ketones Quantitative 1.4 H 0.0-0.6 mmol/L Hemoglobin A1c 11.6 H 4.0-6.0 % Estimated Average Glucose (eAG) 286 H 70-126 mg/dL Lactate Dehydrogenase 266 H 81-234 U/L C-Reactive Protein, Quantitative 8.70 H 0.5-3.0 mg/L Procalcitonin 0.18 0.05-0.5 ng/mL Thyroid Stimulating Hormone (TSH) 0.83 0.36-3.74 uIU/mL Free Thyroxine (T4) Direct 1.33 0.76-1.46 ng/dL Free Triiodothyronine (T3) pg/mL 3.13 2.18-3.98 pg/mL Total Bilirubin 0.5 0.2-1.0 mg/dL Direct Bilirubin < 0.1 0.0-0.3 mg/dL Aspartate Amino Transf (AST/SGOT) 54 H 10-37 U/L Alanine Aminotransferase (ALT/SGPT) 32 12-78 U/L Alkaline Phosphatase 93 50-136 U/L Total Protein 8.4 H 6.0-8.3 g/dL Albumin 3.7 3.5-5.0 g/dL Lipase 38 16-77 U/L Serum Test, Qualitative NEGATIVE NEGATIVE Coagulation Labs: Test 08/05/25 09:00 Range/Units Prothrombin Time 10.9 9.6-11.6 SEC Prothromb Time International Ratio 1.03 0.85-1.15 Activated Partial Thromboplast Time 23.8 L 26.3-35.5 SEC Current Medications Medications (Trade) Dose Ordered Sig/Garrison Route Start Time Stop Time Status Last Admin Dose Admin Atorvastatin Calcium (LIPItor 20MG) 20 mg DAILY PO 08/06/25 09:00 09/05/25 08:59 08/06/25 09:41 20 MG Calcium Gluconate 2 gm/Sodium Chloride 100 ml @ 0 mls/hr PROTOCOL IV 08/06/25 03:30 08/06/25 03:21 DC Ceftriaxone Sodium (ROCEphine 1G INJ) 1 gm BID IVPB 08/05/25 21:00 08/15/25 08:59 08/06/25 09:40 1 GM Ceftriaxone Sodium (ROCEphine 1G INJ) 1 gm Q24H IVPB 08/05/25 09:00 08/05/25 09:55 DC 08/05/25 09:07 1 GM Dextrose/Sodium Chloride 1,000 ml @ 0 mls/hr AD IV 08/05/25 09:00 08/06/25 03:14 DC Enoxaparin Sodium (Lovenox) 40 mg DAILY SQ 08/06/25 09:00 09/05/25 08:59 08/06/25 09:42 40 MG Famotidine (Pepcid 20mg Vial) 20 mg BID IV 08/05/25 21:00 09/04/25 20:59 08/06/25 09:40 20 MG Insulin Glargine (LANtus 100 UNITS/ML 10 ML VIAL) 5 units BID@0730,2100 SQ 08/05/25 21:00 08/06/25 08:16 DC 08/05/25 20:37 5 UNITS Insulin Glargine (LANtus 100 UNITS/ML 10 ML VIAL) 10 units BID@0730,2100 SQ 08/06/25 21:00 09/05/25 20:59 Insulin Human Regular (humuLIN R 100 UNIT/ML 3ML) INSULIN SLIDING SCAL... ACHS SQ 08/06/25 07:30 09/05/25 07:29 08/06/25 08:19 6 UNIT Insulin Human Regular 100 unit/ Sodium Chloride 100 ml @ 0 mls/hr PROTOCOL IV 08/05/25 08:30 08/05/25 09:02 DC Insulin Human Regular 100 unit/ Sodium Chloride 101 ml @ 0 mls/hr PROTOCOL IV 08/05/25 09:00 08/06/25 03:14 DC 08/05/25 09:44 0 MLS/HR Lactated Ringer's 1,000 ml @ 125 mls/hr Q8H IV 08/06/25 03:30 08/06/25 11:10 DC 08/06/25 05:57 125 MLS/HR Loratadine (LORATAdine 10 mg) 10 mg DAILY PO 08/06/25 09:00 09/05/25 08:59 08/06/25 09:42 10 MG Losartan Potassium (CozAAR 25MG TAB) 25 mg Q24H PO 08/05/25 09:00 08/05/25 12:57 DC 08/05/25 10:55 25 MG Losartan Potassium (CozAAR 50 mg TAB) 50 mg BID PO 08/05/25 21:00 09/04/25 20:59 08/06/25 09:41 50 MG Magnesium Sulfate 50 ml @ 0 mls/hr PROTOCOL IV 08/05/25 09:00 08/06/25 03:14 DC 08/05/25 15:34 25 MLS/HR Metoprolol Tartrate (loprESSOR) 100 mg Q12H PO 08/05/25 09:00 09/04/25 08:59 08/06/25 09:42 100 MG Metronidazole/ Sodium Chloride 100 ml @ 100 mls/hr Q8H IVPB 08/05/25 14:00 08/15/25 13:59 08/06/25 14:33 100 MLS/HR Miscellaneous Medication (Metoprolol Tartrate ) 1 tab BID PO 08/06/25 09:00 08/06/25 08:23 DC Potassium Chloride 20 meq/ Sodium Chloride 1,010 ml @ 0 mls/hr PROTOCOL IV 08/05/25 09:00 08/06/25 03:14 DC Potassium Chloride/Dextrose/ Sod Cl 1,000 ml @ 0 mls/hr AD IV 08/05/25 09:00 08/06/25 03:14 DC 08/06/25 00:26 150 MLS/HR Sodium Chloride 1,000 ml @ 0 mls/hr Q0M IV 08/05/25 05:00 08/05/25 08:59 DC 08/05/25 05:11 999 MLS/HR Sodium Chloride 1,000 ml @ 200 mls/hr PROTOCOL IV 08/05/25 09:00 08/06/25 03:14 DC 08/05/25 09:23 200 MLS/HR NEWTON FONSECA MD Aug 06, 2025 20:17
[2025-08-07] VITALS (9 sets, daily range): BP systolic 135–161; BP diastolic 79–92; PULSE 67–88; RESP 16–20; TEMP 97.5–97.9; O2SAT 97–99
[2025-08-07 06:37] LABS: NUCLEATED RED BLOOD CELLS 0.0 % (0.0-0.19); PLATELET COUNT (AUTO) 183.0 K/uL (130-400); RED BLOOD CELL COUNT(AUTO) 4.16 MIL/uL (4.00-5.50); RED CELL DISTRIBUTION WIDTH 13.7 % (11.0-15.5); WHITE BLOOD COUNT (AUTO) 4.7 K/uL (4.8-10.8)
[2025-08-07 07:58] LABS: ASPARTATE AMINOTRANSFERASE 32.0 U/L (10-37); CREATININE 0.6 mg/dL (0.5-1.0); GLOMERULAR FILTR. RATE CALC 127.0 mL/min (>90); GLUCOSE,RANDOM 145.0 mg/dL (70-105); SODIUM SERUM 139.0 mmol/L (136-145); TOTAL PROTEIN, SERUM 6.3 g/dL (6.0-8.3); UREA NITROGEN, BLOOD 13.0 mg/dL (7-18)
[2025-08-07] MEDS: PoTASSium chloRIDE 20MEQ ER 20 MEQ ERTAB PO ONE (11:46)
--- NOTE | 2025-08-07 13:12 | PN ---
[facility] PROGRESS NOTE Date of Service: Aug 07, 2025 Time of Service: 13:09 SUBJECTIVE: 08/06 power chart reviewed, vital signs, laboratory tests, imaging tests medications reviewed, patient awake, following commands, BP 141/72, afebrile, saturating normal on room air, CBC unremarkable, leukocytosis trended down, WBC today 5.6. Sodium 135, potassium 3.5, BUN of 13, creatinine 0.6. Urine drug screen negative. Results of blood cultures negative so far. CT abdomen and pelvis no acute intra-abdominal or pelvic pathology, hepatomegaly with decreased attenuation suggesting hepatic steatosis, marked central cannula narrowing L4-L5 secondary to posterior osteophyte disc complex. Chest x-ray no acute cardiopulmonary pathology. Echocardiogram underlying rhythm sinus tachycardia, suboptimal endocardial definition, left ventricle systolic function is hyperdynamic, possible septal intraventricular hypertrophy of to 1.3 cm maximum thickness. Patient off insulin drip, tolerating diet, no nausea, no vomiting, no abdominal discomfort. Patient to be downgraded from the ICU. Ultrasound renal artery Doppler: MPRESSION: * Nondiagnostic evaluation for renal artery stenosis as bilateral renal arteries were not visualized due to bowel gas. Recommend repeat duplex with bowel gas mitigation (fasting and graded compression) or alternative imaging with CTA or MRA if clinical suspicion remains high. * Kidneys are normal in size bilaterally based on provided measurements. * Abdominal aortic peak systolic velocity is 46 cm/s. * Bladder wall thickness measures 4 mm. 08/07 patient is seen and examined at bedside, discussed with the RN, no acute events overnight, patient downgraded from the ICU to medical floor, the time my visit oriented x3, hemodynamically stable, afebrile, saturating normal on room air, she is tolerating diet, no nausea, no vomiting, no abdominal discomfort. The patient is still with mildly elevated blood pressure, she remains on losartan 50 mg p.o. b.i.d. and metoprolol tartrate 100 mg p.o. q.12 hours. Arterial Doppler renal arteries done 08/05/2025, nondiagnostic evaluation as bilateral renal arteries were not visualized due to bowel gas. We will go ahead and reorder arterial Doppler in order to rule out the possibility of bilateral renal artery stenosis. In the meantime continue the patient on Lantus 10 units subcutaneously b.i.d. as well as insulin sliding scale, continue to follow endocrinology input and recommendation. Follow a.m. labs. Anticipate discharge home over the weekend. Plan of action discussed with the patient, all questions answered, agreed and understood the information provided. REVIEW OF SYSTEMS CONSTITUTIONAL: Denies fevers, chills, or night sweats. No unintentional weight loss reported. NEUROLOGICAL: Denies headache, amaurosis fugax, motor weakness, sensory defic it, vertigo/spinning sensation, gait abnormalities, or tremors. ENT: No hearing loss, otalgia, otorrhea, rhinitis, rhinorrhea, hoarseness, or sore throat. CARDIOVASCULAR: Denies any exertional angina, dyspnea on exertion, orthopnea, paroxysmal nocturnal dyspnea, palpitations, life-threatening arrhythmias, claudication. PULMONARY: Denies any shortness of breath, cough, phlegm/sputum, hemoptysis, pleuritic chest pain. SLEEP: Denies morning headaches, daytime somnolence or napping. Denies difficulty falling asleep, staying asleep, waking from sleep. Denies knowledge of snoring. GASTROINTESTINAL: Multiple episodes of nausea, vomiting and abdominal pain GENITOURINARY: Denies frequency, urgency, nocturia, hematuria or incontinence (Storage/Irritative symptoms.) Low urinary stream, straining to void, urinary intermittency or hesitancy, splitting of the voiding stream, terminal dribbling. ENDOCRINOLOGIC: Denies polyuria, polydipsia, polyphagia or heat/cold intolerances. HEMATOLOGIC: Denies thrombophilia/previous clots, or coagulopathy/bleeding disorders. ONCOLOGIC: Denies personal history of malignancy. DERMATOLOGIC: Denies rashes or pruritus. PSYCHIATRIC: Denies any suicidal or homicidal ideation. Denies hallucinations. PHYSICAL EXAM GENERAL APPEARANCE: The patient is awake, alert, patient is obese, resting in bed, appears anxious NEUROLOGICAL: Cranial nerves II-XII grossly intact. Motor is 5/5 in bilateral upper and lower extremities proximal to distal. No sensory deficits. HEENT: Face is symmetric. Pupils are equal and reactive. Extraocular movements are intact. NECK: Supple. No JVD. No thyromegaly. No submental, submandibular, pre- /postauricular, occipital or supraclavicular lymphadenopathy. CHEST: Normal chest expansion. No Telemetry. LUNGS: Absence of any rales, rhonchi or any wheezing. CARDIOVASCULAR: Regular. S1 and S2 normal. No appreciable rubs, murmurs or gallops. ABDOMEN: Soft, nontender, and nondistended. There is no rebound, voluntary guarding, or rigidity. : Deferred. No Donato. EXTREMITIES: Non-edematous and not cyanotic. No clubbing. Good capillary refill. SKIN: No skin breakdown. Vital Signs (last 8hr) Date Time Temp Pulse Resp B/P (MAP) Pulse Ox O2 Delivery O2 Flow Rate FiO2 08/07/25 11:47 97.7 76 20 135/87 97 Room Air 08/07/25 09:00 98 Room Air* 0 21 08/07/25 08:00 97.5 71 20 141/88 98 Room Air 08/07/25 07:45 88 20 N/A Room Air 21 LABS: Laboratory: Test 08/07/25 11:31 08/07/25 06:13 08/06/25 02:18 08/05/25 18:31 Range/Units Whole Blood Glucose 188 H 70-110 MG/DL White Blood Count 4.7 L 4.8-10.8 K/uL Red Blood Count 4.16 4.00-5.50 MIL/uL Hemoglobin 11.6 L 12.0-16.0 g/dL Hematocrit 35.9 L 36-48 % Mean Corpuscular Volume 86.3 79-99 fL Mean Corpuscular Hemoglobin 27.9 27.0-33.0 pg Mean Corpuscular Hemoglobin Concent 32.3 32.0-36.0 g/dL Red Cell Distribution Width 13.7 11.0-15.5 % Platelet Count 183 130-400 K/uL Mean Platelet Volume 11.1 H 7.5-10.5 fL Nucleated Red Blood Cells 0.0 0.0-0.19 % Sodium Level 139 136-145 mmol/L Potassium Level 3.2 L 3.5-5.1 mmol/L Chloride Level 105 101-111 mmol/L Carbon Dioxide Level 25 21-32 mmol/L Blood Urea Nitrogen 13 7-18 mg/dL Creatinine 0.6 0.5-1.0 mg/dL Glomerular Filtration Rate Calc 127 >90 mL/min Random Glucose 145 H 70-105 mg/dL Total Calcium 7.8 L 8.5-10.1 mg/dL Magnesium Level 2.10 1.80-2.40 mg/dL Total Bilirubin 0.4 0.2-1.0 mg/dL Aspartate Amino Transf (AST/SGOT) 32 10-37 U/L Alanine Aminotransferase (ALT/SGPT) 37 12-78 U/L Alkaline Phosphatase 59 50-136 U/L Total Protein 6.3 6.0-8.3 g/dL Albumin 2.7 L 3.5-5.0 g/dL Immature Granulocyte % (Auto) 0.4 0-1 % Neutrophils (%) (Auto) 77.6 H 40.0-77.0 % Lymphocytes (%) (Auto) 14.0 L 21.0-51.0 % Monocytes (%) (Auto) 7.4 3.0-13.0 % Eosinophils (%) (Auto) 0.2 0.0-8.0 % Basophils (%) (Auto) 0.4 0.0-5.0 % Neutrophils # (Auto) 4.4 1.8-7.7 K/uL Lymphocytes # (Auto) 0.8 L 1.0-4.8 K/uL Monocytes # (Auto) 0.4 0.1-1.0 K/uL Eosinophils # (Auto) 0.01 0.00-0.70 K/uL Basophils # (Auto) 0.02 0.00-0.20 K/uL Absolute Immature Granulocyte (auto 0.02 0-1 K/uL Lactic Acid Level 2.0 0.8-2.5 mmol/L Current Medications Medications (Trade) Dose Ordered Sig/Garrison Route PRN Reason Start Time Stop Time Status Last Admin Dose Admin Acetaminophen (TYLenol 325MG TAB) 650 mg Q6H PRN PO MILD PAIN (1-3) 08/05/25 09:00 09/04/25 08:59 08/05/25 20:41 650 MG Atorvastatin Calcium (LIPItor 20MG) 20 mg DAILY PO 08/06/25 09:00 08/07/25 07:34 DC 08/06/25 09:41 20 MG Atorvastatin Calcium (LIPItor 20MG) 20 mg HS PO 08/07/25 21:00 09/05/25 08:59 Calcium Gluconate 2 gm/Sodium Chloride 100 ml @ 0 mls/hr PROTOCOL IV 08/06/25 03:30 08/06/25 03:21 DC Ceftriaxone Sodium (ROCEphine 1G INJ) 1 gm BID IVPB 08/05/25 21:00 08/15/25 08:59 08/07/25 09:05 1 GM Ceftriaxone Sodium (ROCEphine 1G INJ) 1 gm Q24H IVPB 08/05/25 09:00 08/05/25 09:55 DC 08/05/25 09:07 1 GM Dextrose/Sodium Chloride 1,000 ml @ 0 mls/hr AD IV 08/05/25 09:00 08/06/25 03:14 DC Enoxaparin Sodium (Lovenox) 40 mg DAILY SQ 08/06/25 09:00 09/05/25 08:59 08/07/25 09:05 40 MG Famotidine (Pepcid 20mg Vial) 20 mg BID IV 08/05/25 21:00 09/04/25 20:59 08/07/25 09:05 20 MG Hydralazine HCl (APRESOLine 20MG INJ) 10 mg Q6H PRN IV ADMINISTER FOR SBP > 170 08/05/25 09:30 09/04/25 09:29 08/05/25 12:01 10 MG Insulin Glargine (LANtus 100 UNITS/ML 10 ML VIAL) 5 units BID@0730,2100 SQ 08/05/25 21:00 08/06/25 08:16 DC 08/05/25 20:37 5 UNITS Insulin Glargine (LANtus 100 UNITS/ML 10 ML VIAL) 10 units BID@0730,2100 SQ 08/06/25 21:00 09/05/25 20:59 08/07/25 06:22 10 UNITS Insulin Human Regular (humuLIN R 100 UNIT/ML 3ML) INSULIN SLIDING SCAL... ACHS SQ 08/06/25 07:30 09/05/25 07:29 08/07/25 11:55 4 UNIT Insulin Human Regular 100 unit/ Sodium Chloride 100 ml @ 0 mls/hr PROTOCOL IV 08/05/25 08:30 08/05/25 09:02 DC Insulin Human Regular 100 unit/ Sodium Chloride 101 ml @ 0 mls/hr PROTOCOL IV 08/05/25 09:00 08/06/25 03:14 DC 08/05/25 09:44 0 MLS/HR Ipratropium [place] (AtrovENT UD) 0.5 mg Q6H PRN IH SHORTNESS OF BREATH 08/05/25 09:00 09/04/25 08:59 Lactated Ringer's 1,000 ml @ 125 mls/hr Q8H IV 08/06/25 03:30 08/06/25 11:10 DC 08/06/25 05:57 125 MLS/HR Loratadine (LORATAdine 10 mg) 10 mg DAILY PO 08/06/25 09:00 09/05/25 08:59 08/07/25 09:05 10 MG Losartan Potassium (CozAAR 25MG TAB) 25 mg Q24H PO 08/05/25 09:00 08/05/25 12:57 DC 08/05/25 10:55 25 MG Losartan Potassium (CozAAR 50 mg TAB) 50 mg BID PO 08/05/25 21:00 09/04/25 20:59 08/07/25 09:05 50 MG Magnesium Sulfate 50 ml @ 0 mls/hr PROTOCOL IV 08/05/25 09:00 08/06/25 03:14 DC 08/05/25 15:34 25 MLS/HR Metoprolol Tartrate (loprESSOR) 100 mg Q12H PO 08/05/25 09:00 09/04/25 08:59 08/07/25 09:05 100 MG Metronidazole/ Sodium Chloride 100 ml @ 100 mls/hr Q8H IVPB 08/05/25 14:00 08/15/25 13:59 08/07/25 05:56 100 MLS/HR Miscellaneous Medication (Metoprolol Tartrate ) 1 tab BID PO 08/06/25 09:00 08/06/25 08:23 DC Ondansetron HCl (zoFRAN 4MG INJ) 4 mg Q6H PRN IVP NAUSEA/VOMITING 08/05/25 09:00 09/04/25 08:59 08/05/25 15:55 4 MG Potassium Chloride 20 meq/ Sodium Chloride 1,010 ml @ 0 mls/hr PROTOCOL IV 08/05/25 09:00 08/06/25 03:14 DC Potassium Chloride/Dextrose/ Sod Cl 1,000 ml @ 0 mls/hr AD IV 08/05/25 09:00 08/06/25 03:14 DC 08/06/25 00:26 150 MLS/HR Potassium Chloride 100 ml @ 0 mls/hr PROTOCOL PRN IV DKA POTASSIUM REPLACEMENT 08/05/25 09:00 08/06/25 03:14 DC 08/06/25 00:37 100 MLS/HR Sodium Chloride 1,000 ml @ 0 mls/hr Q0M IV 08/05/25 05:00 08/05/25 08:59 DC 08/05/25 05:11 999 MLS/HR Sodium Chloride 1,000 ml @ 200 mls/hr PROTOCOL IV 08/05/25 09:00 08/06/25 03:14 DC 08/05/25 09:23 200 MLS/HR Vasopressin 40 units/Sodium Chloride 40 ml @ 0 mls/hr AD PRN IV TITRATE 08/06/25 03:30 08/06/25 03:20 DC DIAGNOSTICS / RADIOLOGY: [ ] ASSESSMENT: Early diabetic ketoacidosis, POA Infectious gastroenteritis, POA Lactic acidosis, POA Dehydration, POA Hypertensive urgency, POA History of uncontrolled hypertension, POA History of poorly controlled type 2 diabetes mellitus, POA Severe Obesity, POA History of premature coronary artery disease, POA Metabolic syndrome, POA Leukocytosis, POA Rule out obstructive sleep apnea, POA PLAN: patient is seen and examined at bedside, discussed with the RN, no acute events overnight, patient downgraded from the ICU to medical floor, the time my visit oriented x3, hemodynamically stable, afebrile, saturating normal on room air, she is tolerating diet, no nausea, no vomiting, no abdominal discomfort. The patient is still with mildly elevated blood pressure, she remains on losartan 50 mg p.o. b.i.d. and metoprolol tartrate 100 mg p.o. q.12 hours. Arterial Doppler renal arteries done 08/05/2025, nondiagnostic evaluation as bilateral renal arteries were not visualized due to bowel gas. We will go ahead and reorder arterial Doppler in order to rule out the possibility of bilateral renal artery stenosis. In the meantime continue the patient on Lantus 10 units subcuta neously b.i.d. as well as insulin sliding scale, continue to follow endocrinology input and recommendation. Follow a.m. labs. Anticipate discharge home over the weekend. Plan of action discussed with the patient, all questions answered, agreed and understood the information provided. NEURO: Minimize central acting medications as possible. Fall Precautions. Well lighted room through the day and minimize interruptions through the night to prevent acute delirium. PULMONARY: Supplemental 02 as needed BiPAP as necessary, for respiratory distress Titrate Fio2 to keep Spo2 > or = 90% DuoNebs and CPT as needed IS hourly while awake for pulmonary hygiene prn Out of bed to chair as tolerated Maintain aspiration precautions at all times CARDIOVASCULAR: Follow hemodynamics. Vital signs per facility protocol GI & NUTRITION: Continue nutritional support Aspirations precautions Prokinetic agents and laxatives as needed KIDNEYS & ELECTROLYTES: Strict monitoring of intake and output Daily weights Avoid nephrotoxic agents Monitor electrolytes and replace as needed Goal urine output of 30mL/hr or 0.5mL/kg/hr Medications to be dosed according to renal function. Avoid contrast if possible ENDOCRINE: Maintain blood glucose between 100-180 at all times. Insulin sliding scale for blood glucose management Hypoglycemia and hyperglycemia protocol in place INFECTIOUS DISEASE: Trend temperature, WBC and procalcitonin level Follow cultures, deescalate antibiotics as soon as possible. Panculture if new onset fever HEMATOLOGY & COAGULATION: Monitor H&H. Keep Hgb > 7 Transfuse 1 unit of PRBC for Hgb < 7 Transfuse 1 pack of platelets of platelets < 20, 000 Watch for any signs and symptoms of bleeding SKIN: Pressure ulcer prevention per facility protocol Specialty mattress as needed ORTHO/REHAB Continue PT/OT PRN: MEDICATIONS Tylenol 650 mg po every 4 hrs for fever zofran 4 mg IV every 6 hrs for n/v Hydralazine 5 mg IV every 4 hrs systolic pressure > 160 bowel regiment: lactulose 20 gm PO BID PRN constipation Supportive measures: Continue GI and DVT prophylaxis Disposition: Pending improvement in clinical condition All questions answered time spent: > 35 min SATISH SADLER MD Aug 07, 2025 13:12
--- NOTE | 2025-08-07 21:24 | PN ---
Endocrinology progress note DOS:08/07/25 subjective: [place] [address], hemoglobin of 15.1, platelet count of 101387. BMP remarkable for sodium of 132, chloride of 96, creatinine of 0.6, blood glucose of 338, blood ketone of 1.4, AST of 54, ALT of 32, alkaline phosphatase 93, serum test was noted to be negative, lipase was normal at 38. Patient has been started on Insulin gtt already in the ER due to concerns for DKA. glucose are stable now. off insulin drip. Home diabetic regimen: metformin 500 mg bid Hba1c 11.6% REVIEW OF SYSTEMS CONSTITUTIONAL: Denies fevers, chills, or night sweats. No unintentional weight loss reported. NEUROLOGICAL: Denies headache, amaurosis fugax, motor weakness, sensory deficit, vertigo/spinning sensation, gait abnormalities, or tremors. ENT: No hearing loss, otalgia, otorrhea, rhinitis, rhinorrhea, hoarseness, or sore throat. CARDIOVASCULAR: Denies any exertional angina, dyspnea on exertion, orthopnea, paroxysmal nocturnal dyspnea, palpitations, life-threatening arrhythmias, claudication. PULMONARY: Denies any shortness of breath, cough, phlegm/sputum, hemoptysis, pleuritic chest pain. SLEEP: Denies morning headaches, daytime somnolence or napping. Denies difficulty falling asleep, staying asleep, waking from sleep. Denies knowledge of snoring. GENITOURINARY: Denies frequency, urgency, nocturia, hematuria or incontinence (Storage/Irritative symptoms.) Low urinary stream, straining to void, urinary intermittency or hesitancy, splitting of the voiding stream, terminal dribbling. ENDOCRINOLOGIC: Denies polyuria, polydipsia, polyphagia or heat/cold intolerances. HEMATOLOGIC: Denies thrombophilia/previous clots, or coagulopathy/bleeding disorders. ONCOLOGIC: Denies personal history of malignancy. DERMATOLOGIC: Denies rashes or pruritus. PSYCHIATRIC: Denies any suicidal or homicidal ideation. Denies hallucinations. PAST MEDICAL HISTORY: Hypertension for about a year, diagnosed with type 2 diabetes mellitus for about a year, morbid obesity, hyperlipidemia PAST SURGICAL HISTORY: Previous history of tonsillectomy PAST SOCIAL HISTORY: Resides with mother at home, denies active drug use denies any smoking or alcohol consumption FAMILY HISTORY: Family history of heart disease with father having coronary artery bypass grafting in his 50s Allergies: Cetirizine Medications: Losartan 25 mg daily, metoprolol tartrate 100 mg b.i.d., metformin 500 mg b.i.d., atorvastatin daily Coded Allergies: cetirizine (Unverified Allergy, Unknown, 05/26/24) DIAGNOSTICS / RADIOLOGY: Chest x-ray and CT abdomen pelvis without contrast is pending ASSESSMENT: History of uncontrolled DM-2, POA Home diabetic regimen: metformin 500 mg bid Hba1c 11.6% my suspicion is low for dka. Infectious gastroenteritis, POA Lactic acidosis, POA Dehydration, POA improved Hypertensive urgency, POA HTN, POA Severe Obesity, POA History of premature coronary artery disease, POA Metabolic syndrome, POA Leukocytosis, POA Rule out obstructive sleep apnea, POA PLAN: continue Lantus 10 units daily and adjust for fasting glucose. if daytime hyperglycemia, then start Regular insulin 3 - 5 units three times before meals Continue medium dose sliding scale insulin. Monitor glucose q x 6 hourly. Continue carb consistent diet. Keep glucose less than 180 mg/dl. Patient will need lantus 20 units daily in addition to metformin at discharge. lantus rx placed in chart. Vitals/Labs Vital Signs Date Time Temp Pulse Resp B/P (MAP) Pulse Ox O2 Delivery O2 Flow Rate FiO2 08/07/25 20:00 97.5 83 16 161/86 99 Room Air 08/07/25 18:27 21 08/07/25 09:00 0 Laboratory Tests 08/07/25 06:13 Medications Current Medications Sodium Chloride 1,000 ml @ 0 mls/hr Q0M IV Last administered on 08/05/25at 05:11; Start 08/05/25 at 05:00; Stop 08/05/25 at 08:59; Status DC Ondansetron HCl 4 mg ONCE ONCE IVP Last administered on 08/05/25at 05:11; Start 08/05/25 at 05:00; Stop 08/05/25 at 05:09; Status DC Labetalol HCl 10 mg ONCE ONCE IV Last administered on 08/05/25at 05:46; Start 08/05/25 at 05:30; Stop 08/05/25 at 05:31; Status DC Labetalol HCl 20 mg STK-MED ONCE IV; Start 08/05/25 at 05:24; Stop 08/05/25 at 05:24; Status DC Hydralazine HCl 20 mg ONCE ONCE IV Last administered on 08/05/25at 06:29; Start 08/05/25 at 06:30; Stop 08/05/25 at 06:31; Status DC Ondansetron HCl 4 mg ONCE ONCE IVP Last administered on 08/05/25at 06:36; Start 08/05/25 at 07:00; Stop 08/05/25 at 07:01; Status DC Insulin Human Regular 100 unit/ Sodium Chloride 100 ml @ 0 mls/hr PROTOCOL IV; Start 08/05/25 at 08:30; Stop 08/05/25 at 09:02; Status DC Ceftriaxone Sodium 1 gm Q24H IVPB Last administered on 08/05/25at 09:07; Start 08/05/25 at 09:00; Stop 08/05/25 at 09:55; Status DC Sodium Chloride 1,000 ml @ 200 mls/hr PROTOCOL IV Last administered on 08/05/25at 09:23; Start 08/05/25 at 09:00; Stop 08/06/25 at 03:14; Status DC Potassium Chloride/Dextrose/ Sod Cl 1,000 ml @ 0 mls/hr AD IV Last administered on 08/06/25at 00:26; Start 08/05/25 at 09:00; Stop 08/06/25 at 03:14; Status DC Potassium Chloride 20 meq/ Sodium Chloride 1,010 ml @ 0 mls/hr PROTOCOL IV; Start 08/05/25 at 09:00; Stop 08/06/25 at 03:14; Status DC Potassium Chloride 100 ml @ 0 mls/hr PROTOCOL PRN IV Last administered on 08/06/25at 00:37; Start 08/05/25 at 09:00; Stop 08/06/25 at 03:14; Status DC Magnesium Sulfate 50 ml @ 0 mls/hr PROTOCOL IV Last administered on 08/05/25at 15:34; Start 08/05/25 at 09:00; Stop 08/06/25 at 03:14; Status DC Insulin Human Regular 100 unit/ Sodium Chloride 101 ml @ 0 mls/hr PROTOCOL IV Last administered on 08/05/25at 09:44; Start 08/05/25 at 09:00; Stop 08/06/25 at 03:14; Status DC Dextrose/Sodium Chloride 1,000 ml @ 0 mls/hr AD IV; Start 08/05/25 at 09:00; Stop 08/06/25 at 03:14; Status DC Acetaminophen 650 mg Q6H PRN PO Last administered on 08/05/25at 20:41; Start 08/05/25 at 09:00; Stop 09/04/25 at 08:59 Ondansetron HCl 4 mg Q6H PRN IVP Last administered on 08/05/25at 15:55; Start 08/05/25 at 09:00; Stop 09/04/25 at 08:59 Ipratropium [place] 0.5 mg Q6H PRN IH; Start 08/05/25 at 09:00; Stop 09/04/25 at 08:59 Losartan Potassium 25 mg Q24H PO Last administered on 08/05/25at 10:55; Start 08/05/25 at 09:00; Stop 08/05/25 at 12:57; Status DC Metoprolol Tartrate 100 mg Q12H PO Last administered on 08/07/25at 09:05; Start 08/05/25 at 09:00; Stop 09/04/25 at 08:59 Enoxaparin Sodium 40 mg DAILY SQ Last administered on 08/07/25at 09:05; Start 08/06/25 at 09:00; Stop 09/05/25 at 08:59 Famotidine 20 mg BID IV Last administered on 08/07/25at 09:05; Start 08/05/25 at 21:00; Stop 09/04/25 at 20:59 Hydralazine HCl 10 mg Q6H PRN IV Last administered on 08/05/25at 12:01; Start 08/05/25 at 09:30; Stop 09/04/25 at 09:29 Metronidazole/ Sodium Chloride 100 ml @ 100 mls/hr Q8H IVPB Last administered on 08/07/25at 14:32; Start 08/05/25 at 14:00; Stop 08/15/25 at 13:59 Ceftriaxone Sodium 1 gm BID IVPB Last administered on 08/07/25at 09:05; Start 08/05/25 at 21:00; Stop 08/15/25 at 08:59 Losartan Potassium 50 mg BID PO Last administered on 08/07/25at 09:05; Start 08/05/25 at 21:00; Stop 09/04/25 at 20:59 Insulin Glargine 5 units BID@0730,2100 SQ Last administered on 08/05/25at 20:37; Start 08/05/25 at 21:00; Stop 08/06/25 at 08:16; Status DC Lactated Ringer's 1,000 ml @ 125 mls/hr Q8H IV Last administered on 08/06/25at 05:57; Start 08/06/25 at 03:30; Stop 08/06/25 at 11:10; Status DC Insulin Human Regular INSULIN SLIDING SCAL... ACHS SQ Last administered on 08/07/25at 18:20; Start 08/06/25 at 07:30; Stop 09/05/25 at 07:29 Calcium Gluconate 2 gm AD ONCE IV; Start 08/06/25 at 03:30; Stop 08/06/25 at 03:24; Status DC Vasopressin 40 units/Sodium Chloride 40 ml @ 0 mls/hr AD PRN IV; Start 08/06/25 at 03:30; Stop 08/06/25 at 03:20; Status DC Calcium Gluconate 2 gm/Sodium Chloride 100 ml @ 0 mls/hr PROTOCOL IV; Start 08/06/25 at 03:30; Stop 08/06/25 at 03:21; Status DC Atorvastatin Calcium 20 mg DAILY PO Last administered on 08/06/25at 09:41; Start 08/06/25 at 09:00; Stop 08/07/25 at 07:34; Status DC Loratadine 10 mg DAILY PO Last administered on 08/07/25at 09:05; Start 08/06/25 at 09:00; Stop 09/05/25 at 08:59 Miscellaneous Medication 1 tab BID PO; Start 08/06/25 at 09:00; Stop 08/06/25 at 08:23; Status DC Insulin Glargine 10 units BID@0730,2100 SQ Last administered on 08/07/25at 06:22; Start 08/06/25 at 21:00; Stop 09/05/25 at 20:59 Atorvastatin Calcium 20 mg HS PO; Start 08/07/25 at 21:00; Stop 12/13/25 at 08:59 Potassium Chloride 40 meq ONCE ONCE PO Last administered on 08/07/25at 11:46; Start 08/07/25 at 09:30; Stop 08/07/25 at 09:31; Status DC NEWTON FONSECA MD Aug 07, 2025 21:24
[2025-08-08] VITALS: BP 145/79; PULSE 75; RESP 17; TEMP 97.8
[2025-08-08 04:00] VITALS: BP 153/86; PULSE 77; RESP 17; TEMP 98
[2025-08-08 07:01] VITALS: PULSE 83; RESP 18; O2SAT 97
[2025-08-08 08:00] VITALS: BP 149/92; PULSE 79; RESP 18; TEMP 97.5
[2025-08-08 08:32] VITALS: O2SAT 100
[2025-08-08] MEDS ORDERED: METO50 PO (11:07)
[2025-08-08] MEDS ORDERED: INSU3INS3 SQ (11:07)
[2025-08-08] MEDS ORDERED: LOSA-418 PO (11:07)
[2025-08-08] MEDS ORDERED: INSU100I43 SQ (11:08)
--- NOTE | 2025-08-08 11:25 | DS ---
Discharge Summary Hospital Course Summary: Date of service 08/08/2025 The patient admitted to hospital August 05, 2025 with the following history present illness: This is a 25 year old female with underlying history of severe obesity, hypertension, type 2 diabetes mellitus, hyperlipidemia who presented to the ER for further evaluation of multiple episodes of nausea and vomiting patient states that she had some tacos last night and since then she has been having multiple nonbloody episode of diarrhea, multiple episodes of vomiting as well. Patient denies any fevers or chills. She has been having moderate intensity epigastric discomfort that is intermittent. Patient does report having history of hypertension that has been diagnosed for about one year, she also reports having issues with diabetes and she is currently maintained on metformin over the last one year. She reports having premature history of coronary artery disease in her father who had coronary artery bypass grafting in his 50s. Mother reports that patient also has symptoms of sleep apnea. Patient reports having lost some weight but unable to quantify. She denies any active smoking or alcohol consumption. Denies any illicit drug use. On presentation to the hospital, patient was noted to be afebrile with T-max of 97.3 F, heart rate of 136, blood pressure of 191/130. Labs [place] [address], hemoglobin of 15.1, platelet count of [id number]. BMP remarkable for sodium of 132, chloride of 96, creatinine of 0.6, blood glucose of 338, blood ketone of 1.4, AST of 54, ALT of 32, alkaline phosphatase 93, serum test was noted to be negative, lipase was normal at 38. Patient has been started on Insulin gtt already in the ER due to concerns for DKA. Patient will be admitted to ICU due to concerns for early DKA, patient will be started on IV hydration, IV antibiotic therapy, we will obtain a CT abdomen pelvis without contrast for further evaluation of diarrhea with concerns for infectious gastroenteritis. Request consultation with ICU service and endocrinology this admission. HOSPITAL COURSE 08/06 power chart reviewed, vital signs, laboratory tests, imaging tests medications reviewed, patient awake, following commands, BP 141/72, afebrile, saturating normal on room air, CBC unremarkable, leukocytosis trended down, WBC today 5.6. Sodium 135, potassium 3.5, BUN of 13, creatinine 0.6. Urine drug screen negative. Results of blood cultures negative so far. CT abdomen and pelvis no acute intra-abdominal or pelvic pathology, hepatomegaly with decreased attenuation suggesting hepatic steatosis, marked central cannula narrowing L4-L5 secondary to posterior osteophyte disc complex. Chest x-ray no acute cardiopulmonary pathology. Echocardiogram underlying rhythm sinus tachycardia, suboptimal endocardial definition, left ventricle systolic function is hyperd ynamic, possible septal intraventricular hypertrophy of to 1.3 cm maximum thickness. Patient off insulin drip, tolerating diet, no nausea, no vomiting, no abdominal discomfort. Patient to be downgraded from the ICU. Ultrasound renal artery Doppler: MPRESSION: * Nondiagnostic evaluation for renal artery stenosis as bilateral renal arteries were not visualized due to bowel gas. Recommend repeat duplex with bowel gas mitigation (fasting and graded compression) or alternative imaging with CTA or MRA if clinical suspicion remains high. * Kidneys are normal in size bilaterally based on provided measurements. * Abdominal aortic peak systolic velocity is 46 cm/s. * Bladder wall thickness measures 4 mm. 08/07 patient is seen and examined at bedside, discussed with the RN, no acute events overnight, patient downgraded from the ICU to medical floor, the time my visit oriented x3, hemodynamically stable, afebrile, saturating normal on room air, she is tolerating diet, no nausea, no vomiting, no abdominal discomfort. The patient is still with mildly elevated blood pressure, she remains on losartan 50 mg p.o. b.i.d. and metoprolol tartrate 100 mg p.o. q.12 hours. Arterial Doppler renal arteries done 08/05/2025, nondiagnostic evaluation as bilateral renal arteries were not visualized due to bowel gas. We will go ahead and reorder arterial Doppler in order to rule out the possibility of bilateral renal artery stenosis. In the meantime continue the patient on Lantus 10 units subcutaneously b.i.d. as well as insulin sliding scale, continue to follow endocrinology input and recommendation. Follow a.m. labs. Anticipate discharge home over the weekend. Plan of action discussed with the patient, all questions answered, agreed and understood the information provided. 08/08 patient is seen and examined at bedside, discussed with the RN, no acute events overnight, alert oriented x3, hemodynamically stable, afebrile, saturating normal room air, denies nausea, no vomiting, no abdominal discomfort, tolerating diet. Plan for the patient to be discharged home. 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 Patient agreed with plan and understood the information provided Home Medications: Reported Medications Loratadine (Loratadine) 10 Mg Tablet, 1 TAB PO DAILY for allergy symptoms for 30 Days, #30 TAB 0 Refills 08/05/25 Metformin HCl (Metformin HCl) 1,000 Mg Tablet, 1 TAB PO DAILY for 30 Days, #30 TAB 0 Refills 08/05/25 Losartan Potassium (Losartan Potassium) 25 Mg Tablet, 1 TAB PO DAILY for 30 Days, #30 TAB 0 Refills 08/05/25 Metoprolol Tartrate (Metoprolol Tartrate) 100 Mg Tablet, 1 TAB PO BID for 30 Days, #60 TAB 0 Refills 08/05/25 Atorvastatin Calcium (Atorvastatin Calcium) 20 Mg Tablet, 1 TAB PO DAILY for 30 Days, #30 TAB 0 Refills 08/05/25 Discontinued Scripts Metoprolol Tartrate (Metoprolol Tartrate) 100 Mg Tablet, 100 MG PO BID, #60 TAB Prov:MERLY LOVE 05/26/24 Time spent arranging discharge: 31-60 minutes SATISH SADLER MD Aug 08, 2025 11:25
[2025-08-08 11:28] VITALS: BP 157/97; PULSE 72; RESP 18; TEMP 97.4
[2025-08-08] MEDS ORDERED: CEFD300C3 PO (12:03)
--- NOTE | 2025-08-08 21:11 | PN ---
Endocrinology progress note DOS:08/08/25 subjective: Labs [place] [address], hemoglobin of 15.1, platelet count of [id number]. BMP remarkable for sodium of 132, chloride of 96, creatinine of 0.6, blood glucose of 338, blood ketone of 1.4, AST of 54, ALT of 32, alkaline phosphatase 93, serum test was noted to be negative, lipase was normal at 38. Patient has been started on Insulin gtt already in the ER due to concerns for DKA. glucose are stable now. off insulin drip. Home diabetic regimen: metformin 500 mg bid Hba1c 11.6% REVIEW OF SYSTEMS CONSTITUTIONAL: Denies fevers, chills, or night sweats. No unintentional weight loss reported. NEUROLOGICAL: Denies headache, amaurosis fugax, motor weakness, sensory deficit, vertigo/spinning sensation, gait abnormalities, or tremors. ENT: No hearing loss, otalgia, otorrhea, rhinitis, rhinorrhea, hoarseness, or sore throat. CARDIOVASCULAR: Denies any exertional angina, dyspnea on exertion, orthopnea, paroxysmal nocturnal dyspnea, palpitations, life-threatening arrhythmias, claudication. PULMONARY: Denies any shortness of breath, cough, phlegm/sputum, hemoptysis, pleuritic chest pain. SLEEP: Denies morning headaches, daytime somnolence or napping. Denies difficulty falling asleep, staying asleep, waking from sleep. Denies knowledge of snoring. GENITOURINARY: Denies frequency, urgency, nocturia, hematuria or incontinence (Storage/Irritative symptoms.) Low urinary stream, straining to void, urinary intermittency or hesitancy, splitting of the voiding stream, terminal dribbling. ENDOCRINOLOGIC: Denies polyuria, polydipsia, polyphagia or heat/cold intolerances. HEMATOLOGIC: Denies thrombophilia/previous clots, or coagulopathy/bleeding disorders. ONCOLOGIC: Denies personal history of malignancy. DERMATOLOGIC: Denies rashes or pruritus. PSYCHIATRIC: Denies any suicidal or homicidal ideation. Denies hallucinations. PAST MEDICAL HISTORY: Hypertension for about a year, diagnosed with type 2 diabetes mellitus for about a year, morbid obesity, hyperlipidemia PAST SURGICAL HISTORY: Previous history of tonsillectomy PAST SOCIAL HISTORY: Resides with mother at home, denies active drug use denies any smoking or alcohol consumption FAMILY HISTORY: Family history of heart disease with father having coronary artery bypass grafting in his 50s Allergies: Cetirizine Medications: Losartan 25 mg daily, metoprolol tartrate 100 mg b.i.d., metformin 500 mg b.i.d., atorvastatin daily Coded Allergies: cetirizine (Unverified Allergy, Unknown, 05/26/24) DIAGNOSTICS / RADIOLOGY: Chest x-ray and CT abdomen pelvis without contrast is pending ASSESSMENT: History of uncontrolled DM-2, POA Home diabetic regimen: metformin 500 mg bid Hba1c 11.6% my suspicion is low for dka. Infectious gastroenteritis, POA Lactic acidosis, POA Dehydration, POA improved Hypertensive urgency, POA HTN, POA Severe Obesity, POA History of premature coronary artery disease, POA Metabolic syndrome, POA Leukocytosis, POA Rule out obstructive sleep apnea, POA PLAN: continue Lantus 10 units daily and adjust for fasting glucose. if daytime hyperglycemia, then start Regular insulin 3 - 5 units three times before meals Continue medium dose sliding scale insulin. Monitor glucose q x 6 hourly. Continue carb consistent diet. Keep glucose less than 180 mg/dl. Patient will need lantus 20 units daily in addition to metformin at discharge. lantus rx placed in chart. Vitals/Labs Vital Signs Date Time Temp Pulse Resp B/P (MAP) Pulse Ox O2 Delivery O2 Flow Rate FiO2 08/08/25 11:28 97.3 72 18 157/97 99 Room Air 08/08/25 08:32 0 21 Medications Current Medications Sodium Chloride 1,000 ml @ 0 mls/hr Q0M IV Last administered on 08/05/25at 05:11; Start 08/05/25 at 05:00; Stop 08/05/25 at 08:59; Status DC Ondansetron HCl 4 mg ONCE ONCE IVP Last administered on 08/05/25at 05:11; Start 08/05/25 at 05:00; Stop 08/05/25 at 05:09; Status DC Labetalol HCl 10 mg ONCE ONCE IV Last administered on 08/05/25at 05:46; Start 08/05/25 at 05:30; Stop 08/05/25 at 05:31; Status DC Labetalol HCl 20 mg STK-MED ONCE IV; Start 08/05/25 at 05:24; Stop 08/05/25 at 05:24; Status DC Hydralazine HCl 20 mg ONCE ONCE IV Last administered on 08/05/25at 06:29; Start 08/05/25 at 06:30; Stop 08/05/25 at 06:31; Status DC Ondansetron HCl 4 mg ONCE ONCE IVP Last administered on 08/05/25at 06:36; Sta rt 08/05/25 at 07:00; Stop 08/05/25 at 07:01; Status DC Insulin Human Regular 100 unit/ Sodium Chloride 100 ml @ 0 mls/hr PROTOCOL IV; Start 08/05/25 at 08:30; Stop 08/05/25 at 09:02; Status DC Ceftriaxone Sodium 1 gm Q24H IVPB Last administered on 08/05/25at 09:07; Start 08/05/25 at 09:00; Stop 08/05/25 at 09:55; Status DC Sodium Chloride 1,000 ml @ 200 mls/hr PROTOCOL IV Last administered on 08/05/25at 09:23; Start 08/05/25 at 09:00; Stop 08/06/25 at 03:14; Status DC Potassium Chloride/Dextrose/ Sod Cl 1,000 ml @ 0 mls/hr AD IV Last administered on 08/06/25at 00:26; Start 08/05/25 at 09:00; Stop 08/06/25 at 03:14; Status DC Potassium Chloride 20 meq/ Sodium Chloride 1,010 ml @ 0 mls/hr PROTOCOL IV; Start 08/05/25 at 09:00; Stop 08/06/25 at 03:14; Status DC Potassium Chloride 100 ml @ 0 mls/hr PROTOCOL PRN IV Last administered on 08/06/25at 00:37; Start 08/05/25 at 09:00; Stop 08/06/25 at 03:14; Status DC Magnesium Sulfate 50 ml @ 0 mls/hr PROTOCOL IV Last administered on 08/05/25at 1 5:34; Start 08/05/25 at 09:00; Stop 08/06/25 at 03:14; Status DC Insulin Human Regular 100 unit/ Sodium Chloride 101 ml @ 0 mls/hr PROTOCOL IV Last administered on 08/05/25at 09:44; Start 08/05/25 at 09:00; Stop 08/06/25 at 03:14; Status DC Dextrose/Sodium Chloride 1,000 ml @ 0 mls/hr AD IV; Start 08/05/25 at 09:00; Stop 08/06/25 at 03:14; Status DC Acetaminophen 650 mg Q6H PRN PO Last administered on 08/05/25at 20:41; Start 08/05/25 at 09:00; Stop 08/08/25 at 13:11; Status DC Ondansetron HCl 4 mg Q6H PRN IVP Last administered on 08/05/25at 15:55; Start 08/05/25 at 09:00; Stop 08/08/25 at 13:11; Status DC Ipratropium [place] 0.5 mg Q6H PRN IH; Start 08/05/25 at 09:00; Stop 08/08/25 at 13:11; Status DC Losartan Potassium 25 mg Q24H PO Last administered on 08/05/25at 10:55; Start 08/05/25 at 09:00; Stop 08/05/25 at 12:57; Status DC Metoprolol Tartrate 100 mg Q12H PO Last administered on 08/08/25at 08:31; Start 08/05/25 at 09:00; Stop 08/08/25 at 13:11; Status DC Enoxaparin Sodium 40 mg DAILY SQ Last administered on 08/08/25at 08:31; Start 08/06/25 at 09:00; Stop 08/08/25 at 13:11; Status DC Famotidine 20 mg BID IV Last administered on 08/08/25at 08:32; Start 08/05/25 at 21:00; Stop 08/08/25 at 13:11; Status DC Hydralazine HCl 10 mg Q6H PRN IV Last administered on 08/05/25at 12:01; Start 08/05/25 at 09:30; Stop 08/08/25 at 13:11; Status DC Metronidazole/ Sodium Chloride 100 ml @ 100 mls/hr Q8H IVPB Last administered on 08/08/25at 05:42; Start 08/05/25 at 14:00; Stop 08/08/25 at 13:11; Status DC Ceftriaxone Sodium 1 gm BID IVPB Last administered on 08/08/25at 08:30; Start 08/05/25 at 21:00; Stop 08/08/25 at 13:11; Status DC Losartan Potassium 50 mg BID PO Last administered on 08/08/25at 08:32; Start 08/05/25 at 21:00; Stop 08/08/25 at 13:11; Status DC Insulin Glargine 5 units BID@0730,2100 SQ Last administered on 08/05/25at 20:37; Start 08/05/25 at 21:00; Stop 08/06/25 at 08:16; Status DC Lactated Ringer's 1,000 ml @ 125 mls/hr Q8H IV Last administered on 08/06/25at 05:57; Start 08/06/25 at 03:30; Stop 08/06/25 at 11:10; Status DC Insulin Human Regular INSULIN SLIDING SCAL... ACHS SQ Last administered on 08/07/25at 21:59; Start 08/06/25 at 07:30; Stop 08/08/25 at 13:11; Status DC Calcium Gluconate 2 gm AD ONCE IV; Start 08/06/25 at 03:30; Stop 08/06/25 at 03:24; Status DC Vasopressin 40 units/Sodium Chloride 40 ml @ 0 mls/hr AD PRN IV; Start 08/06/25 at 03:30; Stop 08/06/25 at 03:20; Status DC Calcium Gluconate 2 gm/Sodium Chloride 100 ml @ 0 mls/hr PROTOCOL IV; Start 08/06/25 at 03:30; Stop 08/06/25 at 03:21; Status DC Atorvastatin Calcium 20 mg DAILY PO Last administered on 08/06/25at 09:41; Start 08/06/25 at 09:00; Stop 08/07/25 at 07:34; Status DC Loratadine 10 mg DAILY PO Last administered on 08/08/25at 08:31; Start 08/06/25 at 09:00; Stop 08/08/25 at 13:11; Status DC Miscellaneous Medication 1 tab BID PO; Start 08/06/25 at 09:00; Stop 08/06/25 at 08:23; Status DC Insulin Glargine 10 units BID@0730,2100 SQ Last administered on 08/08/25at 0 6:52; Start 08/06/25 at 21:00; Stop 08/08/25 at 13:11; Status DC Atorvastatin Calcium 20 mg HS PO Last administered on 08/07/25at 21:48; Start 08/07/25 at 21:00; Stop 08/08/25 at 13:11; Status DC Potassium Chloride 40 meq ONCE ONCE PO Last administered on 08/07/25at 11:46; Start 08/07/25 at 09:30; Stop 08/07/25 at 09:31; Status DC NEWTON FONSECA MD Aug 08, 2025 21:11
[2025-08-13 11:50] LABS: ALDOSTERONE/RENIN RATIO 4.6; RENIN ACTIVITY 2.001
== END 2025-08-08 13:07 | disposition home or self-care (01) | DRG 638 ==
LOC: EDH 04:51 → EDHIP 08:45 → 2BH 17:44 → 3AH 08-06 15:09
PROVIDERS: ADMIT Internal Medicine; ATTEND Internal Medicine
DX: E11.10 Type 2 diabetes mellitus with ketoacidosis without coma (principal); A09 Infectious gastroenteritis and colitis, unspecified; I16.0 Hypertensive urgency; R65.10 Systemic inflammatory response syndrome (SIRS) of non-infectious origin without acute organ dysfunction; E66.01 Morbid (severe) obesity due to excess calories; I70.1 Atherosclerosis of renal artery; K76.0 Fatty (change of) liver, not elsewhere classified; Z68.41 Body mass index [BMI] 40.0-44.9, adult; I10 Essential (primary) hypertension; D72.829 Elevated white blood cell count, unspecified; E86.0 Dehydration; N92.0 Excessive and frequent menstruation with regular cycle; E78.00 Pure hypercholesterolemia, unspecified; I25.10 Atherosclerotic heart disease of native coronary artery without angina pectoris; F41.9 Anxiety disorder, unspecified; G47.33 Obstructive sleep apnea (adult) (pediatric); Z79.4 Long term (current) use of insulin; Z79.84 Long term (current) use of oral hypoglycemic drugs; Z82.49 Family history of ischemic heart disease and other diseases of the circulatory system; Z79.899 Other long term (current) drug therapy
CPT/HCPCS: 36415; 36600; 71045; 74176; 80048; 80053; 80061; 80076; 80305; 81001; 82010; 82088; 82435; 82550; 82803; 82947; 82948; 83036; 83605; 83615; 83690; 83735; 83835; 83880; 84132; 84145; 84244; 84295; 84439; 84443; 84481; 84484; 84703; 85018; 85025; 85027; 85610; 85651; 85730; 86140; 87040; 93005; 93306; 93975; 96374; 96375; 99285; G0378; J0360; J0612; J0696; J1650; J1815; J2405; J3475; J3480; J3490; J7030; J1308